=== PATIENT | male | born 1985 | race Caucasian/White ===

== ENCOUNTER 2018-09-10 16:55 | Inpatient (IN) ==
--- NOTE | 2018-09-10 19:24 | ED ---
HPI General Chief complaint: Extremity Problem,Nontraumatic Stated complaint: Leg Numbness Time Seen by Provider: 09/10/18 19:04 Source: patient Mode of arrival: EMS Limitations: physical limitation History of Present Illness HPI Narrative: 33-year-old male complains of weakness and numbness at the waist and lower extremity. Patient states that he has history of spinal stenosis. Patient states that he has intermittent numbness and weakness of the pelvic area and lower extremity since 2013. Patient has been seen by [facility] and neurologist in the past. Patient was advised nonsurgical treatment. Patient moved to [facility] recently. Patient goes to the [facility]. Patient states that he started having urinary incontinence for the past 2 weeks. Patient also complains of numbness and weakness of the pelvic area and lower extremity for the past 2 weeks. Patient states that the symptom is worse this afternoon. Patient states that he is feeling pressure around the pelvic area and lower extremity without feeling pain. Patient denies any recent injury. Patient denies any fever chills. Patient has history of PTSD, seizure. Patient states that he was seen at the [facility] and referred to outpatient MRI this afternoon. Patient had MRI done of the spine this afternoon without knowing the results. Patient was brought into the ED by EMS. MD Complaint: Reports other (Pelvic numbness and lower extremity numbness and weakness.) Onset (ago): week(s) Pain Consistency: intermittent Location: Reports lower extremity Severity scale (1-10): 9 Quality: Reports constant Radiation: Reports distal Relieving factors: nothing Exacerbating factors: nothing Associated symptoms: Reports denies other symptoms Context: Reports other (History of spinal stenosis) Related Data Home Medications Medication Instructions Recorded Confirmed buspirone 10 mg PO TID 09/10/18 09/10/18 diazepam 5 mg PO BID 09/10/18 09/10/18 gabapentin 900 mg PO TID 09/10/18 09/10/18 lorazepam 0.5 mg PO DAILY 09/10/18 09/10/18 meloxicam 15 mg PO DAILY 09/10/18 09/10/18 sertraline 150 mg PO DAILY 09/10/18 09/10/18 trazodone 150 mg PO DAILY 09/10/18 09/10/18 zolpidem [Ambien] 10 mg PO HS 09/10/18 09/10/18 Allergies Allergy/AdvReac Type Severity Reaction Status Date / Time No Known Allergies Allergy Verified 09/10/18 17:55 Review of Systems ROS: all other systems reviewed are negative PMFSH Medical History Medical History Degenerative disc disease (Acute) Facet degeneration of lumbar region (Acute) PTSD (post-traumatic stress disorder) (Acute) Seizure (Acute) Spinal stenosis (Acute) Social History Social History Substance History: No History of Abuse Second Hand Smoke Exposure: No Smoking Status: Never smoker How Often Do You Have a Drink Containing Alcohol: Never Recent Travel in [facility] within the Last 8 Weeks: No Recent Out of Country Travel within the Last 8 Weeks: No Immunization History Tetanus Immunization: Unsure Exam Narrative Exam Narrative: GENERAL: Well-nourished, well-developed patient. SKIN: Focused skin assessment warm/dry. HEAD: Normocephalic. EYES: No scleral icterus. No injection or drainage. NECK: Supple, trachea midline. No JVD or lymphadenopathy. CARDIOVASCULAR: Regular rate and rhythm without murmurs, gallops, or rubs. RESPIRATORY: Breath sounds equal bilaterally. No accessory muscle use. GASTROINTESTINAL: Abdomen soft, non-tender, nondistended. MUSCULOSKELETAL: No cyanosis, or edema. BACK: Nontender without obvious deformity. No CVA tenderness. Neurologic exam: Patient is awake and alert oriented x3. Neurovascular intact upper extremity. Patient unable to move bilateral lower extremity. Decreased light touch sensation bilateral lower extremity. Deep tendon reflex 1+ and equal. Negative Babinski. Good pulses bilaterally lower extremity. Course Initial Documented Vital Signs Pulse Rate 61 09/10/18 17:55 Respiratory Rate 18 09/10/18 17:55 Blood Pressure 115/69 09/10/18 17:55 Pulse Oximetry 98 09/10/18 17:55 Last Documented Vital Signs Temperature 97.8 F 09/12/18 15:16 Pulse Rate 67 09/12/18 15:16 Respiratory Rate 18 09/12/18 15:16 Blood Pressure 114/67 09/12/18 15:16 Pulse Oximetry 96 09/12/18 15:16 Medical Decision Making MDM Narrative Medical decision making narrative: 33-year-old male with history of spinal stenosis complains of numbness around pelvic area and numbness and weakness of bilateral lower extremity. Patient has intermittent symptoms for the past 4 years. Symptoms started 2 weeks ago and progressively worse since then. Medical Screen Exam Complete: Yes Emergency Medical Condition: Yes Differential Diagnosis Differential Diagnosis: Differential diagnosis including radiculopathy, neuropathy, spinal stenosis. Lab Data Lab results reviewed: Yes I reviewed the patient's lab results. Result diagrams: 09/12/18 06:05 09/12/18 06:05 Lab Results 09/10/18 09/10/18 09/10/18 Range/Units 19:36 19:36 19:36 WBC 6.3 (4.0-11.0) th/mm3 RBC 4.96 (4.50-5.90) mil/mm3 Hgb 15.8 (13.0-17.0) gm/dL Hct 44.7 (39.0-51.0) % MCV 90.1 (80.0-100.0) fL MCH 31.9 (27.0-34.0) pg MCHC 35.5 (32.0-36.0) % RDW 13.0 (11.6-17.2) % Plt Count 176 (150-450) th/mm3 MPV 8.3 (7.0-11.0) fL Neut % (Auto) 63.6 (16.0-70.0) % Lymph % (Auto) 28.6 (9.0-44.0) % Rooks % (Auto) 6.7 (0.0-8.0) % Eos % (Auto) 0.8 (0.0-4.0) % Baso % (Auto) 0.3 (0.0-2.0) % Neut # (Auto) 4.0 (1.8-7.7) th/mm3 Lymph # (Auto) 1.8 (1.0-4.8) th/mm3 Rooks # (Auto) 0.4 (0.0-0.9) th/mm3 Eos # (Auto) 0.0 (0.0-0.4) th/mm3 Baso # (Auto) 0.0 (0.0-0.2) th/mm3 WBC Differential . Differential Comment Auto diff final PT (9.8-11.6) sec INR Ratio Sodium 138 (136-145) meq/L Potassium 4.1 (3.5-5.1) meq/L Chloride 105 (98-107) meq/L Carbon Dioxide 30.7 (21.0-32.0) meq/L Anion Gap 2 L (5-15) meq/L BUN 14 (7-18) mg/dL Creatinine 1.09 (0.60-1.30) mg/dL Estimated GFR 78 L (>89) mL/min Random Glucose 77 (74-106) mg/dL Calcium 8.8 (8.5-10.1) mg/dL Total Bilirubin 0.5 (0.2-1.0) mg/dL AST 18 (15-37) U/L ALT 24 (12-78) U/L Alkaline Phosphatase 67 (45-117) U/L Total Protein 7.9 (6.4-8.2) g/dL Albumin 4.3 (3.4-5.0) g/dL Vitamin B12 496 (193-986) pg/mL TSH 1.040 1.060 (0.358-3.740) uIU/mL Urine Color (Yellw/Straw) Urine Clarity (Clear) Urine pH (5.0-8.5) Ur Specific Perry (1.002-1.035) Urine Protein (Neg-Trace) mg/dL Urine Glucose (UA) (Negative) mg/dL Urine Ketones (Negative) mg/dL Urine Occult Blood (Negative) Urine Nitrate (Negative) Urine Bilirubin (Negative) Urine Urobilinogen (Less than 2) mg/dL Ur Leukocyte Esterase (Negative) Urine RBC (0-3) /hpf Urine WBC (0-5) /hpf Urine Mucus (Occasional) /lpf Micro UA Comment Ur Microscopic Review Urine Culture Comments CSF Volume (1) mL CSF Supernat Color (1) (Clear) CSF Gross Blood (1) (0) CSF Volume (2) mL CSF Supernat Color (2) (Clear) CSF Gross Blood (2) (0) CSF Volume (3) mL CSF Supernat Color (3) (Clear) CSF Gross Blood (3) (0) CSF Volume (4) mL CSF Supernat Color (4) (Clear) CSF Gross Blood (4) (0) CSF WBC (4) (0-10) /mm3 CSF RBC (4) (None) /mm3 CSF Neutrophils % % CSF Lymphocytes % % CSF Glucose (40-80) mg/dL CSF Total Protein (15.0-45.0) mg/dL Urine Opiates Screen (Neg) Ur Barbiturates Screen (Neg) Ur Amphetamines Screen (Neg) U Benzodiazepines Scrn (Neg) Urine Cocaine Screen (Neg) U Cannabinoids Screen (Neg) 09/11/18 09/11/18 09/11/18 Range/Units 02:00 02:00 18:35 WBC (4.0-11.0) th/mm3 RBC (4.50-5.90) mil/mm3 Hgb (13.0-17.0) gm/dL Hct (39.0-51.0) % MCV (80.0-100.0) fL MCH (27.0-34.0) pg MCHC (32.0-36.0) % RDW (11.6-17.2) % Plt Count (150-450) th/mm3 MPV (7.0-11.0) fL Neut % (Auto) (16.0-70.0) % Lymph % (Auto) (9.0-44.0) % Rooks % (Auto) (0.0-8.0) % Eos % (Auto) (0.0-4.0) % Baso % (Auto) (0.0-2.0) % Neut # (Auto) (1.8-7.7) th/mm3 Lymph # (Auto) (1.0-4.8) th/mm3 Rooks # (Auto) (0.0-0.9) th/mm3 Eos # (Auto) (0.0-0.4) th/mm3 Baso # (Auto) (0.0-0.2) th/mm3 WBC Differential Differential Comment PT 10.0 (9.8-11.6) sec INR 1.0 Ratio Sodium (136-145) meq/L Potassium (3.5-5.1) meq/L Chloride (98-107) meq/L Carbon Dioxide (21.0-32.0) meq/L Anion Gap (5-15) meq/L BUN (7-18) mg/dL Creatinine (0.60-1.30) mg/dL Estimated GFR (>89) mL/min Random Glucose (74-106) mg/dL Calcium (8.5-10.1) mg/dL Total Bilirubin (0.2-1.0) mg/dL AST (15-37) U/L ALT (12-78) U/L Alkaline Phosphatase (45-117) U/L Total Protein (6.4-8.2) g/dL Albumin (3.4-5.0) g/dL Vitamin B12 (193-986) pg/mL TSH (0.358-3.740) uIU/mL Urine Color Yellow (Yellw/Straw) Urine Clarity Clear (Clear) Urine pH 6.0 (5.0-8.5) Ur Specific Perry 1.019 (1.002-1.035) Urine Protein Negative (Neg-Trace) mg/dL Urine Glucose (UA) Negative (Negative) mg/dL Urine Ketones Negative (Negative) mg/dL Urine Occult Blood Negative (Negative) Urine Nitrate Negative (Negative) Urine Bilirubin Negative (Negative) Urine Urobilinogen Less than 2 (Less than 2) mg/dL Ur Leukocyte Esterase Negative (Negative) Urine RBC 2 (0-3) /hpf Urine WBC 1 (0-5) /hpf Urine Mucus Few H (Occasional) /lpf Micro UA Comment Cath-culture not ind Ur Microscopic Review Not Reportable Urine Culture Comments Cath-cult not ind CSF Volume (1) mL CSF Supernat Color (1) (Clear) CSF Gross Blood (1) (0) CSF Volume (2) mL CSF Supernat Color (2) (Clear) CSF Gross Blood (2) (0) CSF Volume (3) mL CSF Supernat Color (3) (Clear) CSF Gross Blood (3) (0) CSF Volume (4) mL CSF Supernat Color (4) (Clear) CSF Gross Blood (4) (0) CSF WBC (4) (0-10) /mm3 CSF RBC (4) (None) /mm3 CSF Neutrophils % % CSF Lymphocytes % % CSF Glucose (40-80) mg/dL CSF Total Protein (15.0-45.0) mg/dL Urine Opiates Screen Neg (Neg) Ur Barbiturates Screen Neg (Neg) Ur Amphetamines Screen Neg (Neg) U Benzodiazepines Scrn Neg (Neg) Urine Cocaine Screen Neg (Neg) U Cannabinoids Screen Neg (Neg) 09/12/18 09/12/18 09/12/18 Range/Units 06:05 06:05 08:55 WBC 6.0 (4.0-11.0) th/mm3 RBC 4.79 (4.50-5.90) mil/mm3 Hgb 15.2 (13.0-17.0) gm/dL Hct 44.7 (39.0-51.0) % MCV 93.3 (80.0-100.0) fL MCH 31.6 (27.0-34.0) pg MCHC 33.9 (32.0-36.0) % RDW 13.4 (11.6-17.2) % Plt Count 173 (150-450) th/mm3 MPV 8.5 (7.0-11.0) fL Neut % (Auto) 50.4 (16.0-70.0) % Lymph % (Auto) 38.1 (9.0-44.0) % Rooks % (Auto) 9.5 H (0.0-8.0) % Eos % (Auto) 1.5 (0.0-4.0) % Baso % (Auto) 0.5 (0.0-2.0) % Neut # (Auto) 3.0 (1.8-7.7) th/mm3 Lymph # (Auto) 2.3 (1.0-4.8) th/mm3 Rooks # (Auto) 0.6 (0.0-0.9) th/mm3 Eos # (Auto) 0.1 (0.0-0.4) th/mm3 Baso # (Auto) 0.0 (0.0-0.2) th/mm3 WBC Differential . Differential Comment Auto diff final PT (9.8-11.6) sec INR Ratio Sodium 141 (136-145) meq/L Potassium 4.0 (3.5-5.1) meq/L Chloride 105 (98-107) meq/L Carbon Dioxide 29.3 (21.0-32.0) meq/L Anion Gap 7 (5-15) meq/L BUN 15 (7-18) mg/dL Creatinine 1.26 (0.60-1.30) mg/dL Estimated GFR 66 L (>89) mL/min Random Glucose 99 (74-106) mg/dL Calcium 9.1 (8.5-10.1) mg/dL Total Bilirubin 0.4 (0.2-1.0) mg/dL AST 22 (15-37) U/L ALT 20 (12-78) U/L Alkaline Phosphatase 66 (45-117) U/L Total Protein 7.2 D (6.4-8.2) g/dL Albumin 3.9 (3.4-5.0) g/dL Vitamin B12 (193-986) pg/mL TSH (0.358-3.740) uIU/mL Urine Color (Yellw/Straw) Urine Clarity (Clear) Urine pH (5.0-8.5) Ur Specific Perry (1.002-1.035) Urine Protein (Neg-Trace) mg/dL Urine Glucose (UA) (Negative) mg/dL Urine Ketones (Negative) mg/dL Urine Occult Blood (Negative) Urine Nitrate (Negative) Urine Bilirubin (Negative) Urine Urobilinogen (Less than 2) mg/dL Ur Leukocyte Esterase (Negative) Urine RBC (0-3) /hpf Urine WBC (0-5) /hpf Urine Mucus (Occasional) /lpf Micro UA Comment Ur Microscopic Review Urine Culture Comments CSF Volume (1) 1.8 mL CSF Supernat Color (1) Clear (Clear) CSF Gross Blood (1) 0 (0) CSF Volume (2) 2.0 mL CSF Supernat Color (2) Clear (Clear) CSF Gross Blood (2) 0 (0) CSF Volume (3) 2.0 mL CSF Supernat Color (3) Clear (Clear) CSF Gross Blood (3) 0 (0) CSF Volume (4) 3.8 mL CSF Supernat Color (4) Clear (Clear) CSF Gross Blood (4) 0 (0) CSF WBC (4) 2 (0-10) /mm3 CSF RBC (4) 0 (None) /mm3 CSF Neutrophils % 0 % CSF Lymphocytes % 100 % CSF Glucose (40-80) mg/dL CSF Total Protein (15.0-45.0) mg/dL Urine Opiates Screen (Neg) Ur Barbiturates Screen (Neg) Ur Amphetamines Screen (Neg) U Benzodiazepines Scrn (Neg) Urine Cocaine Screen (Neg) U Cannabinoids Screen (Neg) 09/12/18 Range/Units 08:55 WBC (4.0-11.0) th/mm3 RBC (4.50-5.90) mil/mm3 Hgb (13.0-17.0) gm/dL Hct (39.0-51.0) % MCV (80.0-100.0) fL MCH (27.0-34.0) pg MCHC (32.0-36.0) % RDW (11.6-17.2) % Plt Count (150-450) th/mm3 MPV (7.0-11.0) fL Neut % (Auto) (16.0-70.0) % Lymph % (Auto) (9.0-44.0) % Rooks % (Auto) (0.0-8.0) % Eos % (Auto) (0.0-4.0) % Baso % (Auto) (0.0-2.0) % Neut # (Auto) (1.8-7.7) th/mm3 Lymph # (Auto) (1.0-4.8) th/mm3 Rooks # (Auto) (0.0-0.9) th/mm3 Eos # (Auto) (0.0-0.4) th/mm3 Baso # (Auto) (0.0-0.2) th/mm3 WBC Differential Differential Comment PT (9.8-11.6) sec INR Ratio Sodium (136-145) meq/L Potassium (3.5-5.1) meq/L Chloride (98-107) meq/L Carbon Dioxide (21.0-32.0) meq/L Anion Gap (5-15) meq/L BUN (7-18) mg/dL Creatinine (0.60-1.30) mg/dL Estimated GFR (>89) mL/min Random Glucose (74-106) mg/dL Calcium (8.5-10.1) mg/dL Total Bilirubin (0.2-1.0) mg/dL AST (15-37) U/L ALT (12-78) U/L Alkaline Phosphatase (45-117) U/L Total Protein (6.4-8.2) g/dL Albumin (3.4-5.0) g/dL Vitamin B12 (193-986) pg/mL TSH (0.358-3.740) uIU/mL Urine Color (Yellw/Straw) Urine Clarity (Clear) Urine pH (5.0-8.5) Ur Specific Perry (1.002-1.035) Urine Protein (Neg-Trace) mg/dL Urine Glucose (UA) (Negative) mg/dL Urine Ketones (Negative) mg/dL Urine Occult Blood (Negative) Urine Nitrate (Negative) Urine Bilirubin (Negative) Urine Urobilinogen (Less than 2) mg/dL Ur Leukocyte Esterase (Negative) Urine RBC (0-3) /hpf Urine WBC (0-5) /hpf Urine Mucus (Occasional) /lpf Micro UA Comment Ur Microscopic Review Urine Culture Comments CSF Volume (1) mL CSF Supernat Color (1) (Clear) CSF Gross Blood (1) (0) CSF Volume (2) mL CSF Supernat Color (2) (Clear) CSF Gross Blood (2) (0) CSF Volume (3) mL CSF Supernat Color (3) (Clear) CSF Gross Blood (3) (0) CSF Volume (4) mL CSF Supernat Color (4) (Clear) CSF Gross Blood (4) (0) CSF WBC (4) (0-10) /mm3 CSF RBC (4) (None) /mm3 CSF Neutrophils % % CSF Lymphocytes % % CSF Glucose 63 (40-80) mg/dL CSF Total Protein 50.4 H (15.0-45.0) mg/dL Urine Opiates Screen (Neg) Ur Barbiturates Screen (Neg) Ur Amphetamines Screen (Neg) U Benzodiazepines Scrn (Neg) Urine Cocaine Screen (Neg) U Cannabinoids Screen (Neg) Imaging Data Attestation: I personally reviewed and interpreted this imaging study as follows : Radiologist's impression: Cervical Spine MRI 09/10/18 19:15 CONCLUSION: 1. Mild degenerative disc disease at C3-4 and C5-6 without significant central canal or neural foraminal stenosis. 2. Normal cervical cord signal. Lumbar Spine MRI 09/10/18 19:15 CONCLUSION: 1. Mild ligamentum flavum hypertrophy at L4-S1 and facet arthrosis at L5-S1. 2. No significant disc disease, central canal stenosis or neural foraminal compromise. 3. Normal distal cord signal. Thoracic Spine MRI 09/10/18 19:15 CONCLUSION: 1. Negative MR Thoracic Spine non contrast. Head MRI 09/11/18 00:00 CONCLUSION: 1. Negative MR Brain non contrast. Lumbar Puncture Fluoroscopy 09/12/18 00:00 CONCLUSION: 1. Uncomplicated fluoroscopically guided lumbar puncture. Discharge Plan Discharge Disposition Patient Disposition: 30 Still Patient Discharge Details Diagnosis: Bilateral leg weakness Physicians Team ED Provider: Rodolfo Krueger Primary Care Provider: [facility],Physician 's Attending Provider: Tucker Price Other Providers: Rj Interiano Discharge Interventions Interventions: ED Discharge Assessment Last Done: 09/11/18 03:50 Status ED Status: Left Department Discharge Information Discharge Date/Time: 09/11/18 03:51
[2018-09-10 19:52] LABS: Baso % (Auto) 0.3 % (0.0-2.0); Eos % (Auto) 0.8 % (0.0-4.0); Hematocrit 44.7 % (39.0-51.0); Hemoglobin 15.8 gm/dL (13.0-17.0); Lymph # (Auto) 1.8 th/mm3 (1.0-4.8); Lymph % (Auto) 28.6 % (9.0-44.0); Mean Corpuscular HGB Conc 35.5 % (32.0-36.0); Mean Corpuscular Hemoglobin 31.9 pg (27.0-34.0); Mean Corpuscular Volume 90.1 fL (80.0-100.0); Mean Platelet Volume 8.3 fL (7.0-11.0); Mono # (Auto) 0.4 th/mm3 (0.0-0.9); Mono % (Auto) 6.7 % (0.0-8.0); Neut % (Auto) 63.6 % (16.0-70.0); Platelet Count 176 th/mm3 (150-450); Red Blood Count 4.96 mil/mm3 (4.50-5.90); White Blood Count 6.3 th/mm3 (4.0-11.0)
--- NOTE | 2018-09-10 20:13 | MR ---
EXAM DATE: 09/10/2018 8:08 PM EST AGE/SEX: 33 years / Male INDICATIONS: Myelopathy. Bilateral leg numbness and weakness. CLINICAL DATA: This is the patient's initial encounter. Patient reports that signs and symptoms have been present for 2 weeks and indicates a pain score of 8/10. MEDICAL/SURGICAL HISTORY: Renal calculi. Appendectomy. Shoulder sx. COMPARISON: No prior exams available for comparison. TECHNIQUE: Multiplanar, multisequence MRI of the lumbar spine was performed without contrast. Patie nt was scanned in a sitting position; neutral, flexion, and extension scans were performed in the sa gittal plane. FINDINGS: Vertebra: The most caudal-appearing lumbar vertebra is numbered as L5. Vertebral Body heights are in tact. Sagital alignment is maintained. Homogeneous signal. Discs: Maintained. Conus: Normal level and configuration. Paraspinal Soft Tissues: No significantfocal renal abnormalities in the visualized kidneys. Visualize d aorta is non-aneurysmal. No Retroperitoneal adenopathy. T12-L1: The thecal sac has a normal diameter. No evidence of disc bulge or protrusion. The neural foramina are patent bilaterally. L1-L2: The thecal sac has a normal diameter. No evidence of disc bulge or protrusion. The neural foramina are patent bilaterally. L2-L3: The thecal sac has a normal diameter. No evidence of disc bulge or protrusion. The neural foramina are patent bilaterally. L3-L4: The thecal sac has a normal diameter. No evidence of disc bulge or protrusion. The neural foramina are patent bilaterally. L4-L5: Mild ligament of flavum hypertrophy. No significant disc protrusion or bulge. Neural foramin a and central canal are patent. L5-S1: Mild ligamentum flavum hypertrophy and bilateral facet arthropathy. No significant disc bulg e or protrusion. Neural foramina and central canal are patent. CONCLUSION: 1. Mild ligamentum flavum hypertrophy at L4-S1 and facet arthrosis at L5-S1. 2. No significant disc disease, central canal stenosis or neural foraminal compromise. 3. Normal distal cord signal. Electronically signed by: Mamadou Webb MD 09/10/2018 8:12 PM EST
--- NOTE | 2018-09-10 20:14 | MR ---
EXAM DATE: 09/10/2018 8:11 PM EST AGE/SEX: 33 years / Male INDICATIONS: Myelopathy. Bilateral leg numbness and weakness. CLINICAL DATA: This is the patient's initial encounter. Patient reports that signs and symptoms have been present for 2 weeks and indicates a pain score of 8/10. MEDICAL/SURGICAL HISTORY: Renal calculi. Appendectomy. Shoulder sx. COMPARISON: No prior exams available for comparison. TECHNIQUE: Multiplanar, multisequence MRI of the thoracic spine was performed. FINDINGS: VERTEBRAE: Normal vertebral body height. Homogeneous marrow signal. ALIGNMENT: Normal. CORD: Normal position and configuration. T1-T2: Normal. T2-T3: The thecal sac has a normal diameter. No evidence of disc bulge or protrusion. T3-T4: The thecal sac has a normal diameter. No evidence of disc bulge or protrusion. T4-T5: The thecal sac has a normal diameter. No evidence of disc bulge or protrusion. T5-T6: The thecal sac has a normal diameter. No evidence of disc bulge or protrusion. T6-T7: The thecal sac has a normal diameter. No evidence of disc bulge or protrusion. T7-T8: The thecal sac has a normal diameter. No evidence of disc bulge or protrusion. T8-T9: The thecal sac has a normal diameter. No evidence of disc bulge or protrusion. T9-T10: The thecal sac has a normal diameter. No evidence of disc bulge or protrusion. T10-T11: The thecal sac has a normal diameter. No evidence of disc bulge or protrusion. T11-T12: The thecal sac has a normal diameter. No evidence of disc bulge or protrusion. T12-L1: The thecal sac has a normal diameter. No evidence of disc bulge or protrusion. CONCLUSION: 1. Negative MR Thoracic Spine non contrast. Electronically signed by: Mamadou Webb MD 09/10/2018 8:13 PM EST
[2018-09-10 20:19] LABS: Alanine Aminotransferase 24 U/L (12-78); Albumin 4.3 g/dL (3.4-5.0); Anion Gap 2 meq/L (5-15); Aspartate Aminotransferase 18 U/L (15-37); Blood Urea Nitrogen 14 mg/dL (7-18); Calcium 8.8 mg/dL (8.5-10.1); Carbon Dioxide 30.7 meq/L (21.0-32.0); Chloride 105 meq/L (98-107); Glomerular Filtration Rate 78 mL/min (>89); Glucose,Random 77 mg/dL (74-106); Potassium 4.1 meq/L (3.5-5.1); Sodium 138 meq/L (136-145)
[2018-09-10 20:29] LABS: Alkaline Phosphatase 67 U/L (45-117); Total Protein 7.9 g/dL (6.4-8.2)
--- NOTE | 2018-09-10 20:34 | MR ---
EXAM DATE: 09/10/2018 8:25 PM EST AGE/SEX: 33 years / Male INDICATIONS: Myelopathy. Bilateral leg numbness and weakness. CLINICAL DATA: This is the patient's initial encounter. Patient reports that signs and symptoms have been present for 2 weeks and indicates a pain score of 8/10. MEDICAL/SURGICAL HISTORY: Renal calculi. Appendectomy. Shoulder sx. COMPARISON: No prior exams available for comparison. TECHNIQUE: Multiplanar, multisequence MRI examination of the cervical spine was performed without co ntrast. FINDINGS: VERTEBRAE: Normal vertebral body height. Homogeneous marrow signal. ALIGNMENT: Normal. CORD: Normal configuration and signal. POST FOSSA: The cerebellar tonsils are normal in position. C2-C3: The thecal sac has a normal configuration. There is no evidence of disc herniation or spinal canal stenosis. The neural foramina are patent bilaterally. C3-C4: Minimal diffuse disc bulge. Minimal effacement anterior thecal sac. No neural foraminal stenos is. C4-C5: The thecal sac has a normal configuration. There is no evidence of disc herniation or spinal canal stenosis. The neural foramina are patent bilaterally. C5-C6: Mild broad-based posterior disc protrusion with mild effacement anterior thecal sac. Neural fo ramina are patent. C6-C7: The thecal sac has a normal configuration. There is no evidence of disc herniation or spinal canal stenosis. The neural foramina are patent bilaterally. C7-T1: No epidural impressions seen. CONCLUSION: 1. Mild degenerative disc disease at C3-4 and C5-6 without significant central canal or neural jamel inal stenosis. 2. Normal cervical cord signal. Electronically signed by: Mamadou Webb MD 09/10/2018 8:33 PM EST
[2018-09-11] MEDS ORDERED: Bisacodyl 10 MG Supp RECTAL PRN (00:21)
--- NOTE | 2018-09-11 01:47 | P.HP ---
History of Present Illness Service: [facility] Primary Care Physician: [facility] History of Present Illness: 33-year-old male with a past medical history significant for PTSD, degenerative disc disease, previous diagnosis of C5 spinal stenosis and history of kidney stones presents to the emergency department for evaluation of bilateral lower extremity weakness. The patient reports he has had intermittent episodes of his "legs not working" since 2013. He states that for the past 2 weeks his symptoms have returned. He has had intermittent bladder incontinence times 1 month. The patient was having an MRI done at the [place] earlier yesterday when he noted increasing bilateral lower extremity weak. He reports he was able to make it to his truck in the parking lot however once he sat down in the truck he was then unable to move his legs. He reports mild numbness/tingling but states he is still able to feel sensation throughout his lower extremities. Reflexes are normal. He denies any recent fever or chills. No chest pain or shortness of breath. No abdominal pain. No nausea/vomiting/diarrhea. Review of Systems All other systems reviewed negative except as stated in HPI PMFSH - History History Provided By: Patient - Medical History Medical History: Medical History (Last Reviewed 09/11/18 @ 01:37 by Katie Dozier MD) Degenerative disc disease Facet degeneration of lumbar region PTSD (post-traumatic stress disorder) Seizure Spinal stenosis - Surgical History Surgical History: Surgical History (Last Updated 09/11/18 @ 01:38 by Katie Dozier MD) History of appendectomy History of shoulder surgery - Family History Family History: Family History (Last Updated 09/11/18 @ 01:38 by Katie Dozier MD) Other Family history normal - Social History I have reviewed the patient's Social History: Yes - Tobacco History Smoking Status: Refused to answer - Alcohol History How Often Do You Have a Drink Containing Alcohol: 2 to 4 times a month - Substance Use History Substance History: No History of Abuse - Travel History Recent Travel in the [place] Within the Last 8 Weeks: No Recent Travel Out of the Country Within the Last 8 Weeks: No - Immunization History Tetanus Immunization: Unsure Medications and Allergies Active Medications: Active Medications Acetaminophen (Tylenol) 650 mg PO Q4H PRN PRN Reason: Temp > 100.4 Bisacodyl (Dulcolax Supp) 10 mg RECTAL DAILY PRN PRN Reason: SEVERE CONSITIPATION Ondansetron HCl (Zofran Inj) 4 mg IV.PUSH Q6H PRN PRN Reason: NAUSEA OR VOMITING Sennosides (Senokot) 17.2 mg PO Q12H PRN PRN Reason: Moderate Constipation Allergies Allergy/AdvReac Type Severity Reaction Status Date / Time No Known Allergies Allergy Verified 09/10/18 17:55 Home Medications Medication Instructions Recorded Confirmed Type buspirone 10 mg PO TID 09/10/18 09/10/18 History diazepam 5 mg PO BID 09/10/18 09/10/18 History gabapentin 900 mg PO TID 09/10/18 09/10/18 History lorazepam 0.5 mg PO DAILY 09/10/18 09/10/18 History meloxicam 15 mg PO DAILY 09/10/18 09/10/18 History sertraline 150 mg PO DAILY 09/10/18 09/10/18 History trazodone 150 mg PO DAILY 09/10/18 09/10/18 History zolpidem [Ambien] 10 mg PO HS 09/10/18 09/10/18 History Exam Vital signs: Vital Signs 09/10/18 17:55 09/10/18 19:15 09/10/18 22:00 Pulse Rate 61 72 Respiratory Rate 18 18 Blood Pressure 115/69 129/77 Pulse Oximetry 98 100 100 Intake & Output 09/10/18 09/10/18 09/11/18 06:59 18:59 06:59 Weight 75.75 kg Narrative: Gen.: No acute distress Head: Normocephalic. Atraumatic. EENT: Mydriasis bilaterally. Nose without drainage. Airway intact. Throat without injection. Cardiovascular: Regular rate and rhythm. No murmurs, rubs or gallops. Respiratory: Lungs clear to auscultation bilaterally. No wheezes or rhonchi. Abdomen: Soft, nontender, nondistended. No peritoneal signs. Musculoskeletal: No gross deformities. No edema. Skin: No obvious rashes or erythema. Neuro: Patient reports a decreased sensation in his bilateral lower extremities however states he still has feeling. Strength in the bilateral lower extremities 0/5; patient unable to resist gravity. Results - Labs CBC & Chem 7: 09/10/18 19:36 09/10/18 19:36 Labs: Laboratory Results - last 24 hr 09/10/18 09/10/18 19:36 19:36 WBC 6.3 RBC 4.96 Hgb 15.8 Hct 44.7 MCV 90.1 MCH 31.9 MCHC 35.5 RDW 13.0 Plt Count 176 MPV 8.3 Neut % (Auto) 63.6 Lymph % (Auto) 28.6 [place] % (Auto) 6.7 Eos % (Auto) 0.8 Baso % (Auto) 0.3 Neut # (Auto) 4.0 Lymph # (Auto) 1.8 [place] # (Auto) 0.4 Eos # (Auto) 0.0 Baso # (Auto) 0.0 WBC Differential . Differential Comment Auto diff final Sodium 138 Potassium 4.1 Chloride 105 Carbon Dioxide 30.7 Anion Gap 2 L BUN 14 Creatinine 1.09 Estimated GFR 78 L Random Glucose 77 Calcium 8.8 Total Bilirubin 0.5 AST 18 ALT 24 Alkaline Phosphatase 67 Total Protein 7.9 Albumin 4.3 TSH 1.040 - Imaging Impressions Cervical Spine MRI 09/10/18 19:15 CONCLUSION: 1. Mild degenerative disc disease at C3-4 and C5-6 without significant central canal or neural foraminal stenosis. 2. Normal cervical cord signal. Lumbar Spine MRI 09/10/18 19:15 CONCLUSION: 1. Mild ligamentum flavum hypertrophy at L4-S1 and facet arthrosis at L5-S1. 2. No significant disc disease, central canal stenosis or neural foraminal compromise. 3. Normal distal cord signal. Thoracic Spine MRI 09/10/18 19:15 CONCLUSION: 1. Negative MR Thoracic Spine non contrast. Caprini VTE Risk Assessment Caprini VTE Risk Assessment: No/Low Risk (score <= 1) Caprini Risk Assessment Model: Point Value = 1 Point Value = 2 Point Value = 3 Point Value = 5 Age 41-60 Minor surgery BMI > 25 kg/m2 Swollen legs Varicose veins or History of unexplained or recurrent spontaneous Oral contraceptives or hormone replacement Sepsis (< 1 month) Serious lung disease, including pneumonia (< 1 month) Abnormal pulmonary function Acute myocardial infarction Congestive heart failure (< 1 month) History of inflammatory bowel disease Medical patient at bed rest Age 61-74 Arthroscopic surgery Major open surgery (> 45 min) Laparoscopic surgery (> 45 min) Malignancy Confined to bed (> 72 hours) Immobilizing plaster cast Central venous access Age >= 75 History of VTE Family history of VTE Factor V Leiden Prothrombin [id number] Lupus anticoagulant Anticardiolipin antibodies Elevated serum homocysteine Heparin-induced thrombocytopenia Other congenital or acquired thrombophilia Stroke (< 1 month) Elective arthroplasty Hip, pelvis, or leg fracture Acute spinal cord injury (< 1 month) Prophylaxis Regimen: Total Risk Factor Score Risk Level Prophylaxis Regimen 0-1 Low Early ambulation 2 Moderate Order ONE of the following: *Sequential Compression Device (SCD) *Heparin 5000 units SQ BID 3-4 Higher Order ONE of the following medications: *Heparin 5000 units SQ TID *Enoxaparin/Lovenox 40 mg SQ daily (WT < 150 kg, CrCl > 30 mL/min) *Enoxaparin/Lovenox 30 mg SQ daily (WT < 150 kg, CrCl > 10-29 mL/min) *Enoxaparin/Lovenox 30 mg SQ BID (WT < 150 kg, CrCl > 30 mL/min) AND/OR *Sequential Compression Device (SCD) 5 or more Highest Order ONE of the following medications: *Heparin 5000 units SQ TID (Preferred with Epidurals) *Enoxaparin/Lovenox 40 mg SQ daily (WT < 150 kg, CrCl > 30 mL/min) *Enoxaparin/Lovenox 30 mg SQ daily (WT < 150 kg, CrCl > 10-29 mL/min) *Enoxaparin/Lovenox 30 mg SQ BID (WT < 150 kg, CrCl > 30 mL/min) AND *Sequential Compression Device (SCD) Assessment and Plan - Plan Assessment/plan: 1. Bilateral lower extremity weakness Patient reports history of C5 spinal stenosis however cervical, thoracic and lumbar spine MRIs negative for stenosis Neurology consulted, appreciate assistance MRI brain pending Physical therapy 2. Mydriasis Likely secondary to benzodiazepine use which patient states he is prescribed for his PTSD Urine drug screen pending 3. Urinary incontinence Neurologic evaluation as above UA pending 4. PTSD Holding home medications as polypharmacy may be contributing to patient's symptoms FEN Regular diet Electrolytes: Monitor and replete as needed
[2018-09-11 02:31] LABS: Amphetamine Screen,Urine Neg (Neg); Barbiturate Screen,Urine Neg (Neg); Cannabinoid Screen,Urine Neg (Neg); Cocaine Screen,Urine Neg (Neg)
[2018-09-11 02:39] LABS: Bilirubin,Urine Negative (Negative); Clarity,Urine Clear (Clear); Color,Urine Yellow (Yellw/Straw); Glucose,Urine (UA) Negative (Negative); Leukocyte Esterase,Urine Negative (Negative); Mucus,Urine Few /lpf (Occasional); Nitrite,Urine Negative (Negative); Specific Gravity,Urine 1.019 (1.002-1.035)
[2018-09-11 02:42] LABS: Opiate Screen,Urine Neg (Neg)
--- NOTE | 2018-09-11 08:21 | MR ---
EXAM DATE: 09/11/2018 8:14 AM EST AGE/SEX: 33 years / Male INDICATIONS: . Bilateral lower extremity numbness. CLINICAL DATA: This is the patient's initial encounter. Patient reports that signs and symptoms have been present for 2 days and indicates a pain score of 0/10. MEDICAL/SURGICAL HISTORY: None. Appendectomy. Shoulder surgery. COMPARISON: No prior exams available for comparison. TECHNIQUE: Multiplanar, multisequence examination of the brain was performed without contrast. FINDINGS: Cerebrum: The ventricles are normal for age. No evidence of midline shift, mass lesion, hemorrhage or acute infarction. No extraaxial fluid collections are seen. The pituitary gland and suprasellar cistern are normal in configuration. White Matter: No significant signal abnormalities are seen in the white matter. Posterior Fossa: The cerebellum and brainstem are intact. The 4th ventricle is midline. The cerebel lopontine angle is unremarkable. The cerebellar tonsils are normal in position. Diffusion Imaging: No focal areas of restricted diffusion are seen. No evidence of acute infarction . Extracranial: The visualized portions of the orbits and paranasal sinuses are unremarkable. CONCLUSION: 1. Negative MR Brain non contrast. Electronically signed by: Tucker Fleming MD 09/11/2018 8:20 AM EST
--- NOTE | 2018-09-11 13:32 | P.PNIM ---
Subjective Interval history: No evidence of multiple sclerosis, CVA, or stenosis on MRI including brain, cervical spine, thoracic spine, and lumbar spine. Patient still has no significant functionality below his waist and has urinary incontinence. Physical Exam Vital signs: Vital Signs 09/10/18 17:55 09/10/18 19:15 09/10/18 22:00 Temperature Pulse Rate 61 72 Respiratory Rate 18 18 Blood Pressure 115/69 129/77 Pulse Oximetry 98 100 100 09/11/18 01:35 09/11/18 02:00 09/11/18 08:00 Temperature 97.7 F Pulse Rate 56 L 60 70 Respiratory Rate 16 15 16 Blood Pressure 122/76 119/81 Pulse Oximetry 98 98 98 09/11/18 12:00 Temperature 98.1 F Pulse Rate 62 Respiratory Rate 16 Blood Pressure 103/63 Pulse Oximetry 98 Intake & Output 09/10/18 09/11/18 09/11/18 18:59 06:59 18:59 Weight 75.75 kg Other: # Voids 0 Narrative: GENERAL: NAD, A&Ox3 HEAD: Normocephalic. NECK: Supple, trachea midline. No lymphadenopathy. EYES: No scleral icterus. No injection or drainage. CARDIOVASCULAR: Regular rate and rhythm without murmurs, gallops, or rubs. RESPIRATORY: Breath sounds equal bilaterally. No accessory muscle use. GASTROINTESTINAL: Abdomen soft, non-tender, nondistended. MUSCULOSKELETAL: No cyanosis, or edema. SKIN: Warm and dry. NEURO: Bilateral lower extremity weakness, 0 out of 5 strength. Decreased sensory to lower extremities.. Results - Labs CBC & Chem 7: 09/10/18 19:36 09/10/18 19:36 Laboratory Results - last 24 hr 09/10/18 09/10/18 09/11/18 19:36 19:36 02:00 WBC 6.3 RBC 4.96 Hgb 15.8 Hct 44.7 MCV 90.1 MCH 31.9 MCHC 35.5 RDW 13.0 Plt Count 176 MPV 8.3 Neut % (Auto) 63.6 Lymph % (Auto) 28.6 [place] % (Auto) 6.7 Eos % (Auto) 0.8 Baso % (Auto) 0.3 Neut # (Auto) 4.0 Lymph # (Auto) 1.8 [place] # (Auto) 0.4 Eos # (Auto) 0.0 Baso # (Auto) 0.0 WBC Differential . Differential Comment Auto diff final Sodium 138 Potassium 4.1 Chloride 105 Carbon Dioxide 30.7 Anion Gap 2 L BUN 14 Creatinine 1.09 Estimated GFR 78 L Random Glucose 77 Calcium 8.8 Total Bilirubin 0.5 AST 18 ALT 24 Alkaline Phosphatase 67 Total Protein 7.9 Albumin 4.3 TSH 1.040 Urine Color Urine Clarity Urine pH Ur Specific [place] Urine Protein Urine Glucose (UA) Urine Ketones Urine Occult Blood Urine Nitrate Urine Bilirubin Urine Urobilinogen Ur Leukocyte Esterase Urine RBC Urine WBC Urine Mucus Micro UA Comment Ur Microscopic Review Urine Culture Comments Urine Opiates Screen Neg Ur Barbiturates Screen Neg Ur Amphetamines Screen Neg U Benzodiazepines Scrn Neg Urine Cocaine Screen Neg U Cannabinoids Screen Neg 09/11/18 02:00 WBC RBC Hgb Hct MCV MCH MCHC RDW Plt Count MPV Neut % (Auto) Lymph % (Auto) [place] % (Auto) Eos % (Auto) Baso % (Auto) Neut # (Auto) Lymph # (Auto) [place] # (Auto) Eos # (Auto) Baso # (Auto) WBC Differential Differential Comment Sodium Potassium Chloride Carbon Dioxide Anion Gap BUN Creatinine Estimated GFR Random Glucose Calcium Total Bilirubin AST ALT Alkaline Phosphatase Total Protein Albumin TSH Urine Color Yellow Urine Clarity Clear Urine pH 6.0 Ur Specific [place] 1.019 Urine Protein Negative Urine Glucose (UA) Negative Urine Ketones Negative Urine Occult Blood Negative Urine Nitrate Negative Urine Bilirubin Negative Urine Urobilinogen Less than 2 Ur Leukocyte Esterase Negative Urine RBC 2 Urine WBC 1 Urine Mucus Few H Micro UA Comment Cath-culture not ind Ur Microscopic Review Not Reportable Urine Culture Comments Cath-cult not ind Urine Opiates Screen Ur Barbiturates Screen Ur Amphetamines Screen U Benzodiazepines Scrn Urine Cocaine Screen U Cannabinoids Screen - Imaging Impressions Cervical Spine MRI 09/10/18 19:15 CONCLUSION: 1. Mild degenerative disc disease at C3-4 and C5-6 without significant central canal or neural foraminal stenosis. 2. Normal cervical cord signal. Lumbar Spine MRI 09/10/18 19:15 CONCLUSION: 1. Mild ligamentum flavum hypertrophy at L4-S1 and facet arthrosis at L5-S1. 2. No significant disc disease, central canal stenosis or neural foraminal compromise. 3. Normal distal cord signal. Thoracic Spine MRI 09/10/18 19:15 CONCLUSION: 1. Negative MR Thoracic Spine non contrast. Head MRI 09/11/18 00:00 CONCLUSION: 1. Negative MR Brain non contrast. Assessment and Plan - Plan 33-year-old male admitted secondary to acute onset of lower extremity paraplegia Acute onset lower extremity paraplegia bilateral lower extremity weakness Urinary incontinence History of C5 spinal stenosis (mild) No evidence of severe stenosis on imaging No evidence of CVA or MS on imaging of brain and spine Neurology following Continue physical therapy PTSD chronic benzodiazepine use Resumed at lower doses and baseline to prevent withdrawal DVT prophylaxis SCDs contraindicated due to sensory deficit Until bleed is ruled out we will avoid anticoagulation
--- NOTE | 2018-09-11 15:43 | MB ---
cc: Rj Interiano MD, PhD DATE: 09/11/2018 REASON FOR CONSULTATION: Lower extremity weakness. HISTORY OF PRESENT ILLNESS: Mr. Greene is a 33-year-old man who has a history of spine injury in 2008 after he fell down a flight of stairs with persistent back pain. In 2013, he had an episode of transient weakness of both legs lasting a day or so, then it resolved. Since then, he has noted that if he sits on his legs he will get weak and numb, but then it resolves. For the past week, he has had progressive weakness and numbness in both lower extremities, which has been worse the past day or two, progressing to involve both lower extremities with severe weakness. He also has bladder incontinence. He denies double vision or slurred speech. PAST MEDICAL HISTORY: History of C5 stenosis, kidney stones, PTSD, seizures, degenerative disk disease, appendectomy, shoulder surgery. MEDICATIONS: Currently: 1. Tylenol. 2. Dulcolax. 3. BuSpar. 4. Ativan. 5. Zofran. 6. Senokot. 7. Zoloft. 8. Trazodone. NEUROLOGICAL EXAMINATION: VITAL SIGNS: His blood pressure is 119/81, pulse is 70, respirations 16, temperature is 97.7 degrees. NEUROLOGIC: Higher cortical functions is normal. Cranial nerves are intact. Motor exam: He has normal strength in all major groups in the upper extremities. He is weak in the lower extremities, about 1/5 for the iliopsoas, quadriceps, hamstrings, hip, anterior and gastrocnemius. Tone is normal. Sensory exam is diminished in both legs. There is no sensory loss or sensory level about the thoracic area. Reflexes 1+ and symmetric. There is no Babinski sign present. Cerebellar testing is normal. IMAGING STUDIES: He had an MRI of the brain done, which is within normal limits without contrast. MRI cervical spine: Mild degenerative disk disease C3-4, C5-6, no significant stenosis. The cord appears normal. MRI of the thoracic spine is normal. MRI of lumbar spine: Mild degenerative changes at L4-L5 and L5-S1. No significant stenosis. The distal cord is normal. LABORATORY DATA: White count 6300, hemoglobin 15.8, hematocrit 44%, platelet count 176,000. Sodium is 138, potassium 4.1, chloride 105, CO2 is 30, BUN is 14, creatinine 1.09, GFR IS 78, glucose 77, AST 18, ALT is 24. TSH 1.040. Toxicology screen negative. IMPRESSION: Lower extremity weakness. MRI does not show any evidence of multiple sclerosis. No sign of cord compression. I would recommend further evaluation with lumbar puncture to rule out the chance of transverse myelitis. Also, check labs including a B12 level and thyroid level. Rj Interiano MD, PhD DEANA/alec , 03:12 PM , 03:21 PM
[2018-09-11 17:06] LABS: Thyroid Stimulating Hormone 1.06 uIU/mL (0.358-3.740)
[2018-09-11] MEDS: Acetaminophen 325 MG Tablet PO PRN (21:42)
[2018-09-12 07:15] LABS: Baso % (Auto) 0.5 % (0.0-2.0); Eos # (Auto) 0.1 th/mm3 (0.0-0.4); Eos % (Auto) 1.5 % (0.0-4.0); Hematocrit 44.7 % (39.0-51.0); Hemoglobin 15.2 gm/dL (13.0-17.0); Lymph # (Auto) 2.3 th/mm3 (1.0-4.8); Lymph % (Auto) 38.1 % (9.0-44.0); Mean Corpuscular HGB Conc 33.9 % (32.0-36.0); Mean Corpuscular Hemoglobin 31.6 pg (27.0-34.0); Mean Corpuscular Volume 93.3 fL (80.0-100.0); Mean Platelet Volume 8.5 fL (7.0-11.0); Mono # (Auto) 0.6 th/mm3 (0.0-0.9); Mono % (Auto) 9.5 % (0.0-8.0); Neut % (Auto) 50.4 % (16.0-70.0); Platelet Count 173 th/mm3 (150-450); Red Blood Count 4.79 mil/mm3 (4.50-5.90); Red Cell Distribution Width 13.4 % (11.6-17.2)
[2018-09-12 07:44] LABS: Alanine Aminotransferase 20 U/L (12-78)
[2018-09-12 07:47] LABS: Alkaline Phosphatase 66 U/L (45-117); Total Protein 7.2 g/dL (6.4-8.2)
[2018-09-12 07:58] LABS: Albumin 3.9 g/dL (3.4-5.0); Anion Gap 7 meq/L (5-15); Aspartate Aminotransferase 22 U/L (15-37); Blood Urea Nitrogen 15 mg/dL (7-18); Calcium 9.1 mg/dL (8.5-10.1); Carbon Dioxide 29.3 meq/L (21.0-32.0); Chloride 105 meq/L (98-107); Glomerular Filtration Rate 66 mL/min (>89); Glucose,Random 99 mg/dL (74-106); Sodium 141 meq/L (136-145)
[2018-09-12] MEDS: traZODone 50 MG Tablet PO SCH (08:21)
[2018-09-12] MEDS: Sertraline 50 MG Tablet PO SCH (08:21)
--- NOTE | 2018-09-12 09:35 | P.RAD ---
Post Procedure Progress Note - Pre Procedure Diagnosis (1) Myelitis - Post Procedure Diagnosis (1) Myelitis - Procedure Information Procedure Date: 09/12/18 Supervising Radiologist: HALLE Pathak Assisting Physician: Mamadou Webb Estimated blood loss (mL): 0 Anesthesia: Local - Plan of Activity Patient to Unit: ROPU Patient Condition: Good Additional Comments: 10 cc's of clear spinal fluid was successfully withdrawn without any difficulty or complications. Patient tolerated the procedure well. See PACS Report for procedural detail/treatment.
--- NOTE | 2018-09-12 09:40 | IR ---
EXAM DATE: 09/12/2018 9:37 AM EST AGE/SEX: 33 years / Male INDICATIONS: Patient presents with bilateral lower extremity weakness in need for a Lumbar Puncture for diagnosis. CLINICAL DATA: This is the patient's initial encounter. Patient reports that signs and symptoms have been present for 2 weeks and indicates a pain score of 5/10. MEDICAL/SURGICAL HISTORY: Seizures. Spinal stenosis, Degenerative disc disease, Facet degenerat ion of lumbar region, PTSD. Appendectomy. Shoulder surgery. COMPARISON: No prior exams available for comparison. FLUORO TIME (min): 14.7 IMAGE SERIES: 2 ACCESS SITE: L3-4 LUMBAR PUNCTURE TIME: 0855 hours FLUID: Total volume of 10 cc of clear fluid was removed. Fluid was sent to lab for ordered studies. ; . . PROCEDURE: 1. Fluoroscopic guided lumbar puncture. The risks, benefits and alternatives to the procedure were explained and verbal and written consent w as obtained. The site was prepped in sterile fashion. Full sterile technique was used, including ca p, mask, sterile gloves and gown and a large sterile sheet. Hand hygiene and 2% chlorhexidine and/or betadine/alcohol prep was utilized per protocol for cutaneous antisepsis. The skin and subcutaneous tissues were infiltrated with local anesthetic solution. With fluoroscopic guidance the lumbar thecal sac was punctured at the level above. The fluid describ ed above was removed without difficulty. The patient tolerated the procedure well and there were no complications. CONCLUSION: 1. Uncomplicated fluoroscopically guided lumbar puncture. Electronically signed by: Mamadou Webb MD 09/12/2018 9:39 AM EST
[2018-09-12 09:51] LABS: Total Protein,CSF 50.4 mg/dL (15.0-45.0)
--- NOTE | 2018-09-12 10:21 | P.PNIM ---
Subjective Interval history: Lumbar puncture today. Further workup screening for transverse myelitis. Patient does show marked improvement in ambulation today, though I believe unsteady. No new complaints from patient. Physical Exam Vital signs: Vital Signs 09/11/18 12:00 09/11/18 19:32 09/11/18 23:27 Temperature 98.1 F 98.5 F 97.7 F Pulse Rate 62 66 71 Respiratory Rate 16 16 16 Blood Pressure 103/63 118/73 109/67 Pulse Oximetry 98 97 95 09/12/18 03:37 09/12/18 08:10 Temperature 97.6 F 97.5 F L Pulse Rate 65 53 L Respiratory Rate 16 18 Blood Pressure 107/60 108/63 Pulse Oximetry 96 97 Intake & Output 09/11/18 09/12/18 09/12/18 18:59 06:59 18:59 Intake Total 750 / 750 Balance 750 / 750 Intake: Oral 750 / 750 Other: # Voids 3 3 Narrative: GENERAL: NAD, A&Ox3 HEAD: Normocephalic. NECK: Supple, trachea midline. No lymphadenopathy. EYES: No scleral icterus. No injection or drainage. CARDIOVASCULAR: Regular rate and rhythm without murmurs, gallops, or rubs. RESPIRATORY: Breath sounds equal bilaterally. No accessory muscle use. GASTROINTESTINAL: Abdomen soft, non-tender, nondistended. MUSCULOSKELETAL: No cyanosis, or edema. SKIN: Warm and dry. NEURO: Bilateral lower extremity weakness, 2 out of 5 strength. Decreased sensory to lower extremities.. Results - Labs CBC & Chem 7: 09/12/18 06:05 09/12/18 06:05 Laboratory Results - last 24 hr 09/10/18 09/11/18 09/12/18 19:36 18:35 06:05 WBC 6.0 RBC 4.79 Hgb 15.2 Hct 44.7 MCV 93.3 MCH 31.6 MCHC 33.9 RDW 13.4 Plt Count 173 MPV 8.5 Neut % (Auto) 50.4 Lymph % (Auto) 38.1 [place] % (Auto) 9.5 H Eos % (Auto) 1.5 Baso % (Auto) 0.5 Neut # (Auto) 3.0 Lymph # (Auto) 2.3 [place] # (Auto) 0.6 Eos # (Auto) 0.1 Baso # (Auto) 0.0 WBC Differential . Differential Comment Auto diff final PT 10.0 INR 1.0 Sodium Potassium Chloride Carbon Dioxide Anion Gap BUN Creatinine Estimated GFR Random Glucose Calcium Total Bilirubin AST ALT Alkaline Phosphatase Total Protein Albumin Vitamin B12 496 TSH 1.060 CSF Glucose CSF Total Protein 09/12/18 09/12/18 06:05 08:55 WBC RBC Hgb Hct MCV MCH MCHC RDW Plt Count MPV Neut % (Auto) Lymph % (Auto) [place] % (Auto) Eos % (Auto) Baso % (Auto) Neut # (Auto) Lymph # (Auto) [place] # (Auto) Eos # (Auto) Baso # (Auto) WBC Differential Differential Comment PT INR Sodium 141 Potassium 4.0 Chloride 105 Carbon Dioxide 29.3 Anion Gap 7 BUN 15 Creatinine 1.26 Estimated GFR 66 L Random Glucose 99 Calcium 9.1 Total Bilirubin 0.4 AST 22 ALT 20 Alkaline Phosphatase 66 Total Protein 7.2 D Albumin 3.9 Vitamin B12 TSH CSF Glucose 63 CSF Total Protein 50.4 H - Imaging Impressions Lumbar Puncture Fluoroscopy 09/12/18 00:00 CONCLUSION: 1. Uncomplicated fluoroscopically guided lumbar puncture. Assessment and Plan - Plan 33-year-old male admitted secondary to acute onset of lower extremity paraplegia Lumbar puncture today. Neurology is screening for transverse myelitis. Further screenings occurring also. No acute changes per patient. Steroids initiated. Continue physical therapy. Acute onset lower extremity paraplegia bilateral lower extremity weakness Urinary incontinence History of C5 spinal stenosis (mild) No evidence of severe stenosis on imaging No evidence of CVA or MS on imaging of brain and spine Neurology following Continue physical therapy PTSD chronic benzodiazepine use Resumed at lower doses and baseline to prevent withdrawal DVT prophylaxis SCDs contraindicated due to sensory deficit Until bleed is ruled out we will avoid anticoagulation
[2018-09-12 10:36] LABS: Lymphocytes, CSF 100 %; Neutrophils,CSF 0 %; RBC on Tube 4 0 /mm3
[2018-09-12] MEDS: MethylPREDNISolone Sod Succinate Inj 40 MG/ML Vial IV.PUSH SCH ×2 (12:41→13:38)
--- NOTE | 2018-09-12 17:45 | P.PNNEU ---
Subjective Subjective Comments: Pt reports improvement in LE strength since solumedrol started Active Medications: Active Medications Acetaminophen (Tylenol) 650 mg PO Q4H PRN PRN Reason: temp> 100.4/pain Last Admin: 09/11/18 21:42 Dose: 650 mg Bisacodyl (Dulcolax Supp) 10 mg RECTAL DAILY PRN PRN Reason: SEVERE CONSITIPATION Buspirone HCl (Buspar) 10 mg PO TID [facility] Last Admin: 09/12/18 12:41 Dose: 10 mg Lorazepam (Ativan) 0.5 mg PO Q6H PRN PRN Reason: ANXIETY Methylprednisolone Sodium Succinate (Solumedrol Inj) 40 mg IV.PUSH Q8HR [facility] Last Admin: 09/12/18 13:38 Dose: 40 mg Ondansetron HCl (Zofran Inj) 4 mg IV.PUSH Q6H PRN PRN Reason: NAUSEA OR VOMITING Sennosides (Senokot) 17.2 mg PO Q12H PRN PRN Reason: Moderate Constipation Sertraline HCl (Zoloft) 150 mg PO DAILY [facility] Last Admin: 09/12/18 08:21 Dose: 150 mg Trazodone HCl (Desyrel) 150 mg PO DAILY [facility] Last Admin: 09/12/18 08:21 Dose: Not Given Allergies/Adverse Reactions: Allergies Allergy/AdvReac Type Severity Reaction Status Date / Time No Known Allergies Allergy Verified 09/10/18 17:55 Physical Exam Vital signs: Vital Signs 09/11/18 19:32 09/11/18 23:27 09/12/18 03:37 Temperature 98.5 F 97.7 F 97.6 F Pulse Rate 66 71 65 Respiratory Rate 16 16 16 Blood Pressure 118/73 109/67 107/60 Pulse Oximetry 97 95 96 09/12/18 08:10 09/12/18 11:52 09/12/18 15:16 Temperature 97.5 F L 98.2 F 97.8 F Pulse Rate 53 L 67 67 Respiratory Rate 18 18 18 Blood Pressure 108/63 112/60 114/67 Pulse Oximetry 97 97 96 Intake & Output 09/11/18 09/12/18 09/12/18 18:59 06:59 18:59 Intake Total 750 / 750 Balance 750 / 750 Intake: Oral 750 / 750 Other: # Voids 3 3 - Routine Neurological Exam alert, speech normal Cn intact MOTOR-5/5 BUE, 4/5 bilateral iliopsoas, quads, hamstring, tibialis anterior DTR--3+patellar and ankle DTR bilaterally , equivocal Babinski bilaterally Objective Laboratory Results - last 24 hr 09/11/18 09/12/18 09/12/18 18:35 06:05 06:05 WBC 6.0 RBC 4.79 Hgb 15.2 Hct 44.7 MCV 93.3 MCH 31.6 MCHC 33.9 RDW 13.4 Plt Count 173 MPV 8.5 Neut % (Auto) 50.4 Lymph % (Auto) 38.1 Gulf % (Auto) 9.5 H Eos % (Auto) 1.5 Baso % (Auto) 0.5 Neut # (Auto) 3.0 Lymph # (Auto) 2.3 Gulf # (Auto) 0.6 Eos # (Auto) 0.1 Baso # (Auto) 0.0 WBC Differential . Differential Comment Auto diff final PT 10.0 INR 1.0 Sodium 141 Potassium 4.0 Chloride 105 Carbon Dioxide 29.3 Anion Gap 7 BUN 15 Creatinine 1.26 Estimated GFR 66 L Random Glucose 99 Calcium 9.1 Total Bilirubin 0.4 AST 22 ALT 20 Alkaline Phosphatase 66 Total Protein 7.2 D Albumin 3.9 CSF Volume (1) CSF Supernat Color (1) CSF Gross Blood (1) CSF Volume (2) CSF Supernat Color (2) CSF Gross Blood (2) CSF Volume (3) CSF Supernat Color (3) CSF Gross Blood (3) CSF Volume (4) CSF Supernat Color (4) CSF Gross Blood (4) CSF WBC (4) CSF RBC (4) CSF Neutrophils % CSF Lymphocytes % CSF Glucose CSF Total Protein 09/12/18 09/12/18 08:55 08:55 WBC RBC Hgb Hct MCV MCH MCHC RDW Plt Count MPV Neut % (Auto) Lymph % (Auto) Gulf % (Auto) Eos % (Auto) Baso % (Auto) Neut # (Auto) Lymph # (Auto) Gulf # (Auto) Eos # (Auto) Baso # (Auto) WBC Differential Differential Comment PT INR Sodium Potassium Chloride Carbon Dioxide Anion Gap BUN Creatinine Estimated GFR Random Glucose Calcium Total Bilirubin AST ALT Alkaline Phosphatase Total Protein Albumin CSF Volume (1) 1.8 CSF Supernat Color (1) Clear CSF Gross Blood (1) 0 CSF Volume (2) 2.0 CSF Supernat Color (2) Clear CSF Gross Blood (2) 0 CSF Volume (3) 2.0 CSF Supernat Color (3) Clear CSF Gross Blood (3) 0 CSF Volume (4) 3.8 CSF Supernat Color (4) Clear CSF Gross Blood (4) 0 CSF WBC (4) 2 CSF RBC (4) 0 CSF Neutrophils % 0 CSF Lymphocytes % 100 CSF Glucose 63 CSF Total Protein 50.4 H Microbiology 09/12/18 08:55 Gram Stain - Final Lumbar Puncture Review/Management - Review/Management Plan: probably transverse myelitis. Hyper reflexia is against Gu[place]. elevated csf protein can be seen in both. MRI brain normal without evidence of ms recommend--increase solumedrol and continue 5 days. follow up remaining csf studies
[2018-09-12] MEDS ORDERED: MethylPREDNISolone Sod Succinate Inj 40 MG/ML Vial IV.PUSH SCH (18:00)
[2018-09-12] MEDS: Famotidine 20 MG Tablet PO SCH (18:28)
[2018-09-12] MEDS: MethylPREDNISolone Sod Suc Inj 250 MG in Sodium Chlor 0.9% Inj 100 ML IV.SIG SCH ×2 (19:11→23:57)
[2018-09-13] MEDS: Acetaminophen 325 MG Tablet PO PRN (01:07)
[2018-09-13] MEDS: MethylPREDNISolone Sod Suc Inj 250 MG in Sodium Chlor 0.9% Inj 100 ML IV.SIG SCH ×3 (05:27→19:01)
[2018-09-13] MEDS: Famotidine 20 MG Tablet PO SCH ×2 (05:27→19:01)
[2018-09-13] MEDS: Sertraline 50 MG Tablet PO SCH (08:13)
[2018-09-13] MEDS: traZODone 50 MG Tablet PO SCH ×2 (09:40→21:10)
[2018-09-13] MEDS: Butalbital/ASA/Caff 50/325/40 Capsule PO PRN (10:51)
--- NOTE | 2018-09-13 11:24 | P.PNIM ---
Subjective Interval history: Patient able ambulate with walker and wheelchair assistance. Plan for 5 days of high-dose steroids, currently on day 1 out of 5. No new complaints from the patient. Physical Exam Vital signs: Last Vital Signs Temp 97.7 F 09/13/18 04:00 Pulse 83 09/13/18 08:00 Resp 16 09/13/18 08:00 BP 110/57 L 09/13/18 08:00 Pulse Ox 97 09/13/18 08:00 Intake & Output 09/11/18 09/12/18 09/13/18 09/14/18 06:59 06:59 06:59 06:59 Intake Total 750 / 750 520 / 520 Balance 750 / 750 520 / 520 Weight 75.75 kg 57.1 kg Narrative: GENERAL: NAD, A&Ox3 HEAD: Normocephalic. NECK: Supple, trachea midline. No lymphadenopathy. EYES: No scleral icterus. No injection or drainage. CARDIOVASCULAR: Regular rate and rhythm without murmurs, gallops, or rubs. RESPIRATORY: Breath sounds equal bilaterally. No accessory muscle use. GASTROINTESTINAL: Abdomen soft, non-tender, nondistended. MUSCULOSKELETAL: No cyanosis, or edema. SKIN: Warm and dry. NEURO: Bilateral lower extremity weakness, 2 out of 5 strength. Decreased sensory to lower extremities.. Results Labs CBC & Chem 7: 09/12/18 06:05 09/12/18 06:05 Labs: Microbiology 09/12/18 08:55 Lumbar Puncture Gram Stain - Final 09/12/18 08:55 Lumbar Puncture CSF Culture - Preliminary No growth in 24 hours Assessment and Plan Plan 33-year-old male admitted secondary to acute onset of lower extremity paraplegia Combining evidence on lumbar puncture with physical exam, neurology feels this is likely transverse myelitis. High-dose steroids discontinued. Patient will have a total of 5 days of high-dose steroids prior to consideration for discharge. Further see if the studies pending. Acute onset lower extremity paraplegia bilateral lower extremity weakness Urinary incontinence History of C5 spinal stenosis (mild) No evidence of severe stenosis on imaging No evidence of CVA or MS on imaging of brain and spine Neurology following Continue physical therapy PTSD chronic benzodiazepine use Resumed at lower doses and baseline to prevent withdrawal DVT prophylaxis SCDs contraindicated due to sensory deficit Until bleed is ruled out we will avoid anticoagulation Progress Note: Quality VTE Deep Vein Thrombosis/Pulmonary Embolism Present on Admission: No
--- NOTE | 2018-09-13 12:17 | P.DCO ---
Physical Therapy Order: Evaluate and treat, Improve ambulation and Strength and gait training Occupational Therapy Order: Evaluate and treat, Improve ADL, Gross motor coordination and Fine motor coordination Home Health Nursing Order: Medical education and Signs/symptoms of disease process Case Management Consult Case Management Consult-Home Health: Yes I have seen patient Mauricio Greene on 09/13/18. My clinical findings support the need for the requested home health care services because: Limited mobility due to disease progression, Deconditioned with increased weakness, Limited ability to care for self and High risk of falls I certify that my clinical findings support that this patient is homebound because: Unsteady gait/balance, Unsafe to leave home unassisted and Unable to use public transportation
--- NOTE | 2018-09-13 18:05 | P.PNNEU ---
Subjective Subjective Comments: tolerating steroids. He feels some improvement in LE strength but still v weak Active Medications: Active Medications Acetaminophen (Tylenol) 650 mg PO Q4H PRN PRN Reason: temp> 100.4/pain Last Admin: 09/13/18 01:07 Dose: 650 mg Bisacodyl (Dulcolax Supp) 10 mg RECTAL DAILY PRN PRN Reason: SEVERE CONSITIPATION Buspirone HCl (Buspar) 10 mg PO BID [facility] Butalbital/Aspirin/Caffeine (Fiorinal 50-325-40 Mg) 1 cap PO Q4H PRN PRN Reason: HEADACHE Last Admin: 09/13/18 10:51 Dose: 1 cap Famotidine (Pepcid) 20 mg PO BID@0600,1800 [facility] Last Admin: 09/13/18 05:27 Dose: 20 mg Methylprednisolone Sodium Succinate 250 mg/ Sodium Chloride 104 mls @ 208 mls/ hr IV.SIG Q6HR [facility] Last Infusion: 09/13/18 12:44 Dose: Infused Lorazepam (Ativan) 0.5 mg PO Q6H PRN PRN Reason: ANXIETY Ondansetron HCl (Zofran Inj) 4 mg IV.PUSH Q6H PRN PRN Reason: NAUSEA OR VOMITING Sennosides (Senokot) 17.2 mg PO Q12H PRN PRN Reason: Moderate Constipation Sertraline HCl (Zoloft) 150 mg PO DAILY [facility] Last Admin: 09/13/18 08:13 Dose: 150 mg Trazodone HCl (Desyrel) [address] [facility] Allergies/Adverse Reactions: Allergies Allergy/AdvReac Type Severity Reaction Status Date / Time No Known Allergies Allergy Verified 09/10/18 17:55 Physical Exam Vital signs: Vital Signs 09/12/18 20:00 09/12/18 23:30 09/13/18 04:00 Temperature 97.5 F L 98.2 F 97.7 F Pulse Rate 81 73 67 Respiratory Rate 16 16 12 Blood Pressure 118/73 114/65 99/58 L Pulse Oximetry 95 96 95 09/13/18 08:00 09/13/18 11:28 09/13/18 16:08 Temperature 97.4 F L Pulse Rate 83 74 79 Respiratory Rate 16 16 16 Blood Pressure 110/57 L 120/65 119/59 L Pulse Oximetry 97 99 98 Intake & Output 09/12/18 09/13/18 09/13/18 18:59 06:59 18:59 Intake Total 520 / 520 104 / 104 Balance 520 / 520 104 / 104 Weight 57.1 kg Intake: IV 312 / 312 104 / 104 SoluMEDROL Inj 250 MG In NS Inj 312 / 312 104 / 104 100 ML @ 208 mls/hr IV.SIG Q6HR [facility] Rx#:[id number] Other 208 / 208 Other: Other Intake Source Saline Solution # Voids 3 3 Date of Last Bowel Movement 09/12/18 - Routine Neurological Exam alert, speech normal CN intact MOTOR 5/5 BUE, 4/5 BLE proximal and distal Objective Laboratory Results - last 24 hr 09/12/18 09/12/18 10:17 10:17 CSF Albumin 25.7 CSF IgG 2.5 Serum IgG 918 Serum Albumin 4340 Serum IgG/Albumin 0.2 CSF IgG/Albumin 0.10 CSF IgG Synthesis Rate 0 Ser Oligoclonal Bands 0 CSF Oligoclonal Bands 0 CSF/Serum IgG Index 0.48 CSF Olig Protein Interp 0 Microbiology 09/12/18 08:55 Gram Stain - Final Lumbar Puncture CSF Culture - Preliminary No growth in 24 hours Review/Management - Review/Management Plan: probably transverse myelitis. continue iv solumedrol through Sunday am check anti-NMO antibody
[2018-09-14] MEDS: MethylPREDNISolone Sod Suc Inj 250 MG in Sodium Chlor 0.9% Inj 100 ML IV.SIG SCH ×4 (00:16→17:53)
[2018-09-14] MEDS: Famotidine 20 MG Tablet PO SCH ×2 (05:19→17:53)
[2018-09-14] MEDS: Sertraline 50 MG Tablet PO SCH (10:11)
--- NOTE | 2018-09-14 12:19 | P.PNIM ---
Subjective Interval history: Pt seen and examined for f/u transverse myelitis. Reports increasing sensation in his lower extremities and slightly improving strength and mobility. States he is able to wiggle his toes, dorsi- and plantarflex his feet, light his heels off the bed, and slightly bend his knees in bed. He is ambulating with PT. He denies any other symptoms including chest pain, abdominal pain, nausea, or vomiting. Does endorse some mild dyspnea when he is ambulating but he attributes this to deconditioning. He is able to urinate and has no issues with retention or incontinence. Physical Exam Vital signs: Vital Signs 09/13/18 16:08 09/13/18 20:00 09/14/18 00:00 Temperature 97.4 F L 98.0 F 98.3 F Pulse Rate 79 67 60 Respiratory Rate 16 17 17 Blood Pressure 119/59 L 105/50 L 87/52 L Pulse Oximetry 98 95 96 09/14/18 01:35 09/14/18 04:00 09/14/18 08:00 Temperature 97.5 F L 98.0 F Pulse Rate 66 59 L Respiratory Rate 17 16 Blood Pressure 105/55 L 105/57 L 101/56 L Pulse Oximetry 95 94 L 09/14/18 11:36 Temperature 98.1 F Pulse Rate 68 Respiratory Rate 16 Blood Pressure 117/62 Pulse Oximetry 98 Intake & Output 09/13/18 09/14/18 09/14/18 18:59 06:59 18:59 Intake Total 104 / 104 312 / 312 Balance 104 / 104 312 / 312 Weight 57.1 kg Intake: IV 104 / 104 312 / 312 SoluMEDROL Inj 250 MG In NS Inj 104 / 104 312 / 312 100 ML @ 208 mls/hr IV.SIG Q6HR [facility] Rx#:[id number] Other: # Voids 3 Date of Last Bowel Movement 09/12/18 09/12/18 Narrative: GENERAL: WN, WD pleasant male resting in bed in NAD. SKIN: Warm and dry. No rashes or jaundice. HEENT: AT/NC. Pupils equal and round. MMM. HEART: RRR no m/r/g. LUNGS: CTAB without wheezes or crackles. ABDOMEN: +BS, soft, NT, ND. EXTREMITIES: No LE edema. 2+ pedal pulses. Calves supple and nontender. NEURO: Patient has sensation in his lower extremities but cannot differentiate sharp from dull. He is able to wiggle his toes, plantar and dorsiflex his feet, float his heels, and bend his knees in bed. PSYCH: Appropriate mood and affect. Results - Labs CBC & Chem 7: 09/12/18 06:05 09/12/18 06:05 Laboratory Results - last 24 hr 09/12/18 09/12/18 10:17 10:17 CSF Albumin 25.7 CSF IgG 2.5 Serum IgG 918 Serum Albumin 4340 Serum IgG/Albumin 0.2 CSF IgG/Albumin 0.10 CSF IgG Synthesis Rate 0 Ser Oligoclonal Bands 0 CSF Oligoclonal Bands 0 CSF/Serum IgG Index 0.48 CSF Olig Protein Interp 0 Microbiology 09/12/18 08:55 Lumbar Puncture Gram Stain - Final 09/12/18 08:55 Lumbar Puncture CSF Culture - Preliminary No growth in 48 hours Assessment and Plan - Assessment (1) Transverse myelitis Code(s): G37.3 - Acute transverse myelitis in demyelinating disease of central nervous system Status: Acute - Plan 33-year-old male admitted secondary to acute onset of bilateral lower extremity paraplegia. 1. Transverse myelitis - No evidence of CVA or MS on imaging of brain and spine - No evidence of severe stenosis - Combining evidence on lumbar puncture with physical exam, neurology feels this is likely transverse myelitis - Neurology following - Continue IV steroids (through Sunday AM per neuro) - PT following 2. PTSD - Pt with chronic benzodiazepine use - Resumed at lower doses to prevent withdrawal - Continue bedtime trazodone DVT prophylaxis: Lovenox Discharge Planning: Anticipate D/C on completion of IV steroids on Sunday. Pt to resume PT with [facility]
[2018-09-14] MEDS: Butalbital/ASA/Caff 50/325/40 Capsule PO PRN (20:02)
[2018-09-14] MEDS: traZODone 50 MG Tablet PO SCH (20:02)
[2018-09-14] MEDS: Heparin - SQ 10,000 UNITS/ML Vial SQ SCH (20:04)
[2018-09-15] MEDS: MethylPREDNISolone Sod Suc Inj 250 MG in Sodium Chlor 0.9% Inj 100 ML IV.SIG SCH ×5 (00:23→23:40)
[2018-09-15] MEDS: Famotidine 20 MG Tablet PO SCH ×2 (06:18→17:28)
[2018-09-15] MEDS: Sertraline 50 MG Tablet PO SCH (09:59)
[2018-09-15] MEDS: Heparin - SQ 10,000 UNITS/ML Vial SQ SCH ×2 (10:03→23:39)
--- NOTE | 2018-09-15 13:23 | P.PN ---
Subjective Interval history: Follow up for transverse myelitis: Patient seen and examined, awake, alert oriented x3. States that he has increased mobility some, has been walking with physical therapy with one assist, improved sensation. Able to wiggle toes, lift feet off bed and bend knees. Feels some weakness in his arms, can't lift above head. No acute changes overnight. No n/v/d. C/O fatiguing easily Physical Exam Vital signs: Vital Signs 09/14/18 16:00 09/14/18 20:00 09/15/18 00:00 Temperature 97.5 F L 97.8 F 97.3 F L Pulse Rate 58 L 71 57 L Respiratory Rate 18 20 20 Blood Pressure 116/65 141/65 H 125/75 Pulse Oximetry 96 95 95 09/15/18 04:00 09/15/18 08:00 Temperature 97.7 F 97.8 F Pulse Rate 54 L 53 L Respiratory Rate 20 16 Blood Pressure 119/65 110/71 Pulse Oximetry 94 L 96 Intake & Output 09/14/18 09/15/18 09/15/18 18:59 06:59 18:59 Intake Total Output Total 0 / 0 Balance Weight 83.9 kg Intake: IV SoluMEDROL Inj 250 MG In NS Inj 100 ML @ 208 mls/hr IV.SIG Q6HR [facility] Rx#:[id number] Output: Urine 0 / 0 Other: # Voids 0 Date of Last Bowel Movement 09/12/18 09/12/18 Narrative: GENERAL: 33-year-old well-developed well-nourished male. No apparent distress. SKIN: Warm and dry. No rashes or jaundice. HEENT: AT/NC. Pupils equal and round. MMM. HEART: RRR no m/r/g. LUNGS: Lung sounds clear to auscultations, no adventitious breath sounds ABDOMEN: +BS, soft, NT, ND. EXTREMITIES: No LE edema. 2+ pedal pulses. NEURO: Patient awake, alert oriented x3. Speech clear. Has intact sensation lower extremities, able to wiggle his toes, plantar and dorsiflex his feet, float his heels, and bend his knees in bed. Patellar reflexes hyper reflexive. Bilateral upper extremity strength 3-4 out of 5. PSYCH: Appropriate mood and affect. Results - Labs CBC & Chem 7: 09/12/18 06:05 09/12/18 06:05 Microbiology 09/12/18 08:55 Lumbar Puncture Gram Stain - Final 09/12/18 08:55 Lumbar Puncture CSF Culture - Final No growth in 72 hours Assessment and Plan - Assessment (1) Transverse myelitis Code(s): G37.3 - Acute transverse myelitis in demyelinating disease of central nervous system Status: Acute - Plan 33-year-old male admitted secondary to acute onset of bilateral lower extremity paraplegia. 1. Transverse myelitis - No evidence of CVA or MS on imaging of brain and spine - No evidence of severe stenosis - Combining evidence on lumbar puncture with physical exam, neurology feels this is likely transverse myelitis - Neurology following - Continue IV steroids (through Sunday AM per neuro) - PT/OT following -some improvement, but still weak. C/O weakness to arms. 2. PTSD - Pt with chronic benzodiazepine use - Resumed at lower doses to prevent withdrawal - Continue bedtime trazodone DVT prophylaxis: Lovenox CM consult for dc planning, pt. has already contacted [place] for home health services as well. He lives alone but has a friend who is willing to help. Code Status: Full code Discussed Condition With: RN, pt, CM Discharge Planning: Home with [facility] poss Sunday when cleared by neurology
[2018-09-15] MEDS: Butalbital/ASA/Caff 50/325/40 Capsule PO PRN (23:39)
[2018-09-15] MEDS: traZODone 50 MG Tablet PO SCH (23:39)
[2018-09-16] MEDS: MethylPREDNISolone Sod Suc Inj 250 MG in Sodium Chlor 0.9% Inj 100 ML IV.SIG SCH ×4 (06:05→23:58)
[2018-09-16] MEDS: Famotidine 20 MG Tablet PO SCH ×2 (09:18→18:30)
[2018-09-16] MEDS: Sertraline 50 MG Tablet PO SCH (09:18)
[2018-09-16] MEDS: Heparin - SQ 10,000 UNITS/ML Vial SQ SCH ×2 (09:19→21:18)
--- NOTE | 2018-09-16 16:15 | P.PN ---
Subjective Interval history: Follow up for transverse myelitis: Patient seen and examined, worked with PT today, ambulated with assist and did ADLs. Lower extremity weakness fair, legs feel heavy and "tight" today. Not bending knees as much. BUE remains weak, unchanged. Some urinary incontinence. C/O constipations, stools firm. Appetite okay, no n/v. [facility] [place] Physical Exam Vital signs: Vital Signs 09/15/18 20:43 09/16/18 00:00 09/16/18 04:00 Temperature 98.2 F 98.3 F 98.2 F Pulse Rate 60 53 L 49 L Respiratory Rate 20 20 20 Blood Pressure 136/70 129/74 123/70 Pulse Oximetry 95 95 94 L 09/16/18 08:00 09/16/18 12:00 Temperature 97.8 F 97.5 F L Pulse Rate 76 74 Respiratory Rate 20 20 Blood Pressure 121/71 126/65 Pulse Oximetry 95 95 Intake & Output 09/15/18 09/16/18 09/16/18 18:59 06:59 18:59 Intake Total 208 / 208 208 / 208 Balance 208 / 208 208 / 208 Weight 85.1 kg Intake: IV 208 / 208 208 / 208 SoluMEDROL Inj 250 MG In NS Inj 208 / 208 208 / 208 100 ML @ 208 mls/hr IV.SIG Q6HR [facility] Rx#:[id number] Other: Date of Last Bowel Movement 09/12/18 09/12/18 Narrative: GENERAL: 33-year-old well-developed well-nourished male. No apparent distress. SKIN: Warm and dry. No rashes or jaundice. HEENT: AT/NC. Pupils equal and round. MMM. HEART: RRR no m/r/g. LUNGS: Lung sounds clear to auscultations, no adventitious breath sounds ABDOMEN: +BS, soft, NT, ND. EXTREMITIES: No LE edema. 2+ pedal pulses. NEURO: Patient awake, alert oriented x3. Speech clear. Has intact sensation lower extremities, able to wiggle his toes, plantar and dorsiflex his feet, float his heels, barely bends his knees in bed. Patellar reflexes hyper reflexive. Bilateral upper extremity strength 3-4 out of 5. PSYCH: Appropriate mood and affect. Results - Labs CBC & Chem 7: 09/12/18 06:05 09/12/18 06:05 Assessment and Plan - Assessment (1) Transverse myelitis Code(s): G37.3 - Acute transverse myelitis in demyelinating disease of central nervous system Status: Acute - Plan 33-year-old male admitted secondary to acute onset of bilateral lower extremity paraplegia. 1. Transverse myelitis - No evidence of CVA or MS on imaging of brain and spine - No evidence of severe stenosis - Combining evidence on lumbar puncture with physical exam, neurology feels this is likely transverse myelitis - Neurology following - Continue IV steroids (today last dose) - PT/OT following -some improvement, but still weak. C/O weakness to arms. -will need clearance from neurology. 2. PTSD - Pt with chronic benzodiazepine use - Resumed at lower doses to prevent withdrawal - Continue bedtime trazodone 3. Constipation -add Miralax daily DVT prophylaxis: Lovenox CM consult for dc planning, pt. has already contacted [place] for home health services as well. He lives alone but has a friend who is willing to help. Code Status: Full code Discussed Condition With: RN, pt, CM Discharge Planning: Home with [facility] poss Sunday when cleared by neurology
[2018-09-16] MEDS: Polyethylene Glycol 3350 17 GM Packet PO SCH (18:29)
[2018-09-16] MEDS: traZODone 50 MG Tablet PO SCH (21:18)
[2018-09-17] MEDS: Famotidine 20 MG Tablet PO SCH ×2 (06:12→17:52)
[2018-09-17] MEDS: MethylPREDNISolone Sod Suc Inj 250 MG in Sodium Chlor 0.9% Inj 100 ML IV.SIG SCH ×3 (06:12→17:53)
[2018-09-17] MEDS: Heparin - SQ 10,000 UNITS/ML Vial SQ SCH ×2 (08:23→21:19)
[2018-09-17] MEDS: Sertraline 50 MG Tablet PO SCH (08:23)
[2018-09-17] MEDS: Polyethylene Glycol 3350 17 GM Packet PO SCH (08:26)
--- NOTE | 2018-09-17 09:57 | P.PNIM ---
Subjective Interval history: Follow up for transverse myelitis. Patient seen and examined today. Reports continued had to have bilateral lower extremity weakness. Unable to stand up but able to propel himself from wheelchair to bed as witnessed. Reports on and off constipation, urinary incontinence. Denies any fevers, chills, nausea, vomiting, diarrhea. Denies any chest pain, palpitations. Complains of lower extremity pain, back pain. Reports headaches states it is dull, pounding pulsating, unrelieved by repositioning, aggravated by getting out of bed in the morning, also at night. States caffeine is helping a little bit. Takes 2 sodas a day. Physical Exam Vital signs: Vital Signs 09/16/18 12:00 09/16/18 16:00 09/16/18 20:00 Temperature 97.5 F L 97.8 F 97.7 F Pulse Rate 74 64 69 Respiratory Rate 20 20 20 Blood Pressure 126/65 136/63 125/71 Pulse Oximetry 95 96 96 09/17/18 00:00 09/17/18 02:05 09/17/18 04:00 Temperature 97.6 F 98 F Pulse Rate 59 L 54 L Respiratory Rate 18 16 18 Blood Pressure 121/64 122/67 Pulse Oximetry 96 94 L 09/17/18 08:00 Temperature 97.9 F Pulse Rate 55 L Respiratory Rate 20 Blood Pressure 120/69 Pulse Oximetry 95 Intake & Output 09/16/18 09/17/18 09/17/18 18:59 06:59 18:59 Intake Total 824 / 824 312 / 312 Output Total 2 / 2 Balance 822 / 822 312 / 312 Weight 85.1 kg Intake: IV 104 / 104 312 / 312 SoluMEDROL Inj 250 MG In NS Inj 104 / 104 312 / 312 100 ML @ 208 mls/hr IV.SIG Q6HR [facility] Rx#:[id number] Oral 720 / 720 Output: Urine 2 / 2 Other: # Voids 2 Date of Last Bowel Movement 09/12/18 09/15/18 Narrative: GENERAL: This is a well-nourished, well-developed male patient, in no apparent distress. SKIN: Warm and dry HEENT: Normocephalic. Pupils equal round and reactive. Nose without bleeding. Airway patent. NECK: Trachea midline. CARDIOVASCULAR: Regular rate and rhythm without murmurs, gallops, or rubs. RESPIRATORY: Clear to auscultation. Breath sounds equal bilaterally. No wheezes , rales, or rhonchi. GASTROINTESTINAL: Abdomen soft, non-tender, nondistended. Bowel Sounds normoactive x4. MUSCULOSKELETAL: Extremities without clubbing, cyanosis, or edema. NEUROLOGICAL: Awake and alert. Oriented to time, place, person. Normal speech. Has intact sensation lower extremities, able to wiggle his toes, plantar and dorsiflex his feet, float his heels, barely bends his knees in bed. Patellar reflexes hyper reflexive. Bilateral upper extremity strength 3-4 out of 5. Results - Labs CBC & Chem 7: 09/12/18 06:05 09/12/18 06:05 Laboratory Results - last 24 hr 09/12/18 08:55 CSF Myelin Basic Protein Less than 2.0 L Assessment and Plan - Assessment (1) Transverse myelitis Code(s): G37.3 - Acute transverse myelitis in demyelinating disease of central nervous system Status: Acute - Plan 33-year-old male admitted secondary to acute onset of bilateral lower extremity paraplegia. Transverse myelitis -No evidence of CVA or MS on imaging of brain and spine -No evidence of severe stenosis -Combining evidence on lumbar puncture with physical exam, neurology feels this is likely transverse myelitis -Neurology following, recommends checking NMO antibody -Continue IV steroids (today last dose) -PT/OT following -some improvement, but still weak. C/O weakness to arms and legs. Weakness propelling himself from wheelchair to bed. -Unable to stand up completely. Bilateral upper extremity with limited range of motion. -will need clearance from neurology -Patient requesting paperwork from disability to be filled out. As per [employer], paperwork has been filled out and returned to patient. He needs to have the rest filled out by [facility]. PTSD -Pt with chronic benzodiazepine use -Resumed at lower doses to prevent withdrawal -Continue bedtime trazodone Constipation -add Miralax daily DVT prophylaxis Lovenox CODE STATUS: Full code Discussed with patient, nursing, CM, Dr. Aponte Discharge Planning: Will possibly need outpatient physical therapy versus home health care physical therapy when cleared by neurology.
[2018-09-17] MEDS: LORazepam 0.5 MG Tablet PO PRN (16:47)
--- NOTE | 2018-09-17 17:39 | XR ---
EXAM DATE: 09/17/2018 5:35 PM EST AGE/SEX: 33 years / Male INDICATIONS: Chest pain. CLINICAL DATA: This is the patient's initial encounter. Patient reports that signs and symptoms have been present for 1 day and indicates a pain score of 10/10. MEDICAL/SURGICAL HISTORY: . Seizures. Spinal stenosis, Degenerative disc disease, Facet degener ation of lumbar region, PTSD. . Appendectomy. Shoulder surgery. COMPARISON: No prior exams available for comparison. FINDINGS: A single AP view of the chest demonstrates the lungs to be symmetrically aerated without evidence of mass, infiltrate or effusion. The cardiomediastinal contours are unremarkable. Osseous structures a re intact. CONCLUSION: No acute cardiopulmonary process. Electronically signed by: Albin Rahman MD 09/17/2018 5:38 PM EST
--- NOTE | 2018-09-17 20:09 | P.PNNEU ---
Subjective Subjective Comments: Pt feels weaker in both legs. C/O urinary urgency Active Medications: Active Medications Acetaminophen (Tylenol) 650 mg PO Q4H PRN PRN Reason: temp> 100.4/pain Last Admin: 09/13/18 01:07 Dose: 650 mg Bisacodyl (Dulcolax Supp) 10 mg RECTAL DAILY PRN PRN Reason: SEVERE CONSITIPATION Buspirone HCl (Buspar) 10 mg PO BID [facility] Last Admin: 09/17/18 08:23 Dose: 10 mg Butalbital/Aspirin/Caffeine (Fiorinal 50-325-40 Mg) 1 cap PO Q4H PRN PRN Reason: HEADACHE Last Admin: 09/15/18 23:39 Dose: 1 cap Famotidine (Pepcid) 20 mg PO BID@0600,1800 [facility] Last Admin: 09/17/18 17:52 Dose: 20 mg Heparin Sodium (Porcine) (Heparin Inj) 5,000 units SQ Q12HR [facility] Last Admin: 09/17/18 08:23 Dose: 5,000 units Lorazepam (Ativan) 0.5 mg PO Q6H PRN PRN Reason: ANXIETY Last Admin: 09/17/18 16:47 Dose: 0.5 mg Ondansetron HCl (Zofran Inj) 4 mg IV.PUSH Q6H PRN PRN Reason: NAUSEA OR VOMITING Polyethylene Glycol (Miralax) 17 gm PO DAILY [facility] Last Admin: 09/17/18 08:26 Dose: Not Given Sennosides (Senokot) 17.2 mg PO Q12H PRN PRN Reason: Moderate Constipation Sertraline HCl (Zoloft) 150 mg PO DAILY [facility] Last Admin: 09/17/18 08:23 Dose: 150 mg Trazodone HCl (Desyrel) 150 mg PO HS [facility] Last Admin: 09/16/18 21:18 Dose: 150 mg Allergies/Adverse Reactions: Allergies Allergy/AdvReac Type Severity Reaction Status Date / Time No Known Allergies Allergy Verified 09/10/18 17:55 Physical Exam Vital signs: Vital Signs 09/17/18 00:00 09/17/18 02:05 09/17/18 04:00 Temperature 97.6 F 98 F Pulse Rate 59 L 54 L Respiratory Rate 18 16 18 Blood Pressure 121/64 122/67 Pulse Oximetry 96 94 L 09/17/18 08:00 09/17/18 11:58 09/17/18 15:10 Temperature 97.9 F 97.6 F 98.1 F Pulse Rate 55 L 60 76 Respiratory Rate 20 20 20 Blood Pressure 120/69 126/68 129/68 Pulse Oximetry 95 95 95 Intake & Output 09/17/18 09/17/18 09/18/18 06:59 18:59 06:59 Intake Total 312 / 312 104 / 104 104 / 104 Balance 312 / 312 104 / 104 104 / 104 Weight 85.1 kg Intake: IV 312 / 312 104 / 104 104 / 104 SoluMEDROL Inj 250 MG In NS Inj 312 / 312 104 / 104 104 / 104 100 ML @ 208 mls/hr IV.SIG Q6HR [facility] Rx#:[id number] Other: # Voids 2 Date of Last Bowel Movement 09/15/18 - Routine Neurological Exam alert, speech normal CN intact MOTOR 5./5 BUE 1/5 BLE proximally and distally Sensory diminished BLE DTR 3+ patellar bilaterally, 2+ ankle bilaterlly. no Babinski Objective Laboratory Results - last 24 hr 09/12/18 08:55 CSF Myelin Basic Protein Less than 2.0 L Review/Management - Review/Management Plan: repeat MRI cervical and thoracic spines check anti-NMO antibody (aquaporin-4 antibody) If positive, consider plasma pheresis
[2018-09-17] MEDS: traZODone 50 MG Tablet PO SCH (21:18)
[2018-09-18] MEDS: Famotidine 20 MG Tablet PO SCH ×2 (06:27→17:41)
[2018-09-18] MEDS: Sertraline 50 MG Tablet PO SCH (08:39)
[2018-09-18] MEDS: Heparin - SQ 10,000 UNITS/ML Vial SQ SCH ×2 (08:40→20:46)
[2018-09-18] MEDS: Polyethylene Glycol 3350 17 GM Packet PO SCH (08:40)
[2018-09-18] MEDS ORDERED: Gadobutrol PF 10 MMOL/10 ML Vial (for RAD) IV.SIG ONE (10:15)
--- NOTE | 2018-09-18 10:26 | MR ---
EXAM DATE: 09/18/2018 10:17 AM EST AGE/SEX: 33 years / Male INDICATIONS: Incontinence. Leg weakness. CLINICAL DATA: This is the patient's subsequent encounter. Patient reports that signs and symptoms h ave been present for 2 weeks and indicates a pain score of 3/10. MEDICAL/SURGICAL HISTORY: . kidney stones . left shoulder surgery COMPARISON: [facility] – [place], [place] CERVICAL SPINE W/O CONTRAST, 09/10/2018. . TECHNIQUE: Multiplanar, multisequence MRI examination of the cervical spine was performed without an d with 8.5 ml Gadavist (gadobutrol) contrast as a single exam dose. FINDINGS: Vertebrae: No fracture is identified. Vertebral body height is maintained. Alignment: No anterolisthesis or retrolisthesis. The craniocervical junction and C1-C2 level demonstrate no significant abnormality. C2-C3: No disc herniation, canal stenosis, or neural foraminal stenosis is identified. C3-C4: No disc herniation, canal stenosis, or neural foraminal stenosis is identified. C4-C5: No disc herniation, canal stenosis, or neural foraminal stenosis is identified. C5-C6: There is disc desiccation with a mild diffuse disc bulge. No spinal canal stenosis or neural foraminal stenosis is present. C6-C7: No disc herniation, canal stenosis, or neural foraminal stenosis is identified. C7-T1: No disc herniation, canal stenosis, or neural foraminal stenosis is identified. Other: The visualized surrounding structures demonstrate no acute abnormality. Post contrast: No abnormal areas of contrast enhancement are identified. CONCLUSION: 1. Mild degenerative disc disease at C5-C6 with mild diffuse disc bulge. No spinal canal stenosis or neural foraminal narrowing is identified. 2. Remainder of the examination is within normal limits without an abnormality to explain the clinic al symptoms. Electronically signed by: Albin Davidson MD 09/18/2018 10:25 AM EST
--- NOTE | 2018-09-18 10:29 | MR ---
EXAM DATE: 09/18/2018 8:48 AM EST AGE/SEX: 33 years / Male INDICATIONS: Incontinence. Leg weakness. CLINICAL DATA: This is the patient's subsequent encounter. Patient reports that signs and symptoms h ave been present for 2 weeks and indicates a pain score of 3/10. MEDICAL/SURGICAL HISTORY: . kidney stone . left shoulder surgery [place] [facility] [place]AC[place] W/[place]AST, 09/10/2018. . TECHNIQUE: Multiplanar, multisequence MRI of the thoracic spine was performed without and with 8.5 m l Gadavist (gadobutrol) contrast as a single exam dose. FINDINGS: Vertebrae: Normal vertebral body height. Bone marrow signal is within normal limits. Alignment: No anterolisthesis or retrolisthesis. Cord: Normal signal. T1-T2: No disc herniation, canal stenosis, or neural foraminal stenosis. T2-T3: No disc herniation, canal stenosis, or neural foraminal stenosis. T3-T4: No disc herniation, canal stenosis, or neural foraminal stenosis. T4-T5: No disc herniation, canal stenosis, or neural foraminal stenosis. T5-T6: No disc herniation, canal stenosis, or neural foraminal stenosis. T6-T7: No disc herniation, canal stenosis, or neural foraminal stenosis. T7-T8: No disc herniation, canal stenosis, or neural foraminal stenosis. T8-T9: No disc herniation, canal stenosis, or neural foraminal stenosis. T9-T10: No disc herniation, canal stenosis, or neural foraminal stenosis. T10-T11: No disc herniation, canal stenosis, or neural foraminal stenosis. T11-T12: No disc herniation, canal stenosis, or neural foraminal stenosis. T12-L1: No disc herniation, canal stenosis, or neural foraminal stenosis. Other: The visualized surrounding structures demonstrate no acute abnormality. Post contrast: No abnormal areas of enhancement are identified. CONCLUSION: Examination of the thoracic spine is within normal limits. Electronically signed by: Albin Davidson MD 09/18/2018 10:28 AM EST
[2018-09-18] MEDS: LORazepam 0.5 MG Tablet PO PRN ×2 (14:46→20:47)
--- NOTE | 2018-09-18 16:20 | P.PNIM ---
Subjective Interval history: Follow up for transverse myelitis. Patient seen and examined today. Reports continued had to have bilateral lower extremity weakness. States MRI has been done. States he saw Dr. Interiano yesterday and had some of the paperwork filled out. Patient had another paperwork from the [employer] for central nervous system and neuromuscular diseases. Continues to have bowel and bladder incontinence. Otherwise, denies shortness of breath or dyspnea, denies chest pain, palpitation. Reports episode of chest pain yesterday with palpitation and tachycardia and high blood pressure states possibly related to his anxiety as after he took antianxiety medication which she has Ativan and diazepam also at home aside from buspirone patient states he was doing okay. Physical Exam Vital signs: Vital Signs 09/17/18 20:00 09/18/18 00:00 09/18/18 00:38 Temperature 97.8 F 98.0 F Pulse Rate 56 L 55 L Respiratory Rate 20 20 18 Blood Pressure 151/82 H 141/76 H Pulse Oximetry 94 L 93 L 09/18/18 04:00 09/18/18 08:00 09/18/18 12:00 Temperature 97.8 F 97.8 F 97.3 F L Pulse Rate 54 L 48 L 68 Respiratory Rate 20 20 18 Blood Pressure 139/77 150/87 H 113/60 Pulse Oximetry 95 94 L Intake & Output 09/17/18 09/18/18 09/18/18 18:59 06:59 18:59 Intake Total 104 / 104 104 / 104 Output Total 4 / 4 Balance 104 / 104 100 / 100 Weight 87.3 kg Intake: IV 104 / 104 104 / 104 SoluMEDROL Inj 250 MG In NS Inj 104 / 104 104 / 104 100 ML @ 208 mls/hr IV.SIG Q6HR [facility] Rx#:[id number] Output: Urine 4 / 4 Other: # Voids 4 Date of Last Bowel Movement 09/17/18 # Bowel Movements 2 Narrative: GENERAL: This is a well-nourished, well-developed male patient, in no apparent distress. SKIN: Warm and dry HEENT: Normocephalic. Pupils equal round and reactive. Nose without bleeding. Airway patent. NECK: Trachea midline. CARDIOVASCULAR: Regular rate and rhythm without murmurs, gallops, or rubs. RESPIRATORY: Clear to auscultation. Breath sounds equal bilaterally. No wheezes , rales, or rhonchi. GASTROINTESTINAL: Abdomen soft, non-tender, nondistended. Bowel Sounds normoactive x4. MUSCULOSKELETAL: Extremities without clubbing, cyanosis, or edema. NEUROLOGICAL: Awake and alert. Oriented to time, place, person. Normal speech. Has intact sensation lower extremities, able to wiggle his toes, plantar and dorsiflex his feet, float his heels, barely bends his knees in bed. Patellar reflexes hyper reflexive. Bilateral upper extremity strength 4 out of 5. Results - Labs CBC & Chem 7: 09/12/18 06:05 09/12/18 06:05 - Imaging Impressions Chest X-Ray 09/17/18 00:00 CONCLUSION: No acute cardiopulmonary process. Cervical Spine MRI 09/18/18 00:00 CONCLUSION: 1. Mild degenerative disc disease at C5-C6 with mild diffuse disc bulge. No spinal canal stenosis or neural foraminal narrowing is identified. 2. Remainder of the examination is within normal limits without an abnormality to explain the clinical symptoms. Thoracic Spine MRI 09/18/18 07:09 CONCLUSION: Examination of the thoracic spine is within normal limits. Assessment and Plan - Assessment (1) Transverse myelitis Code(s): G37.3 - Acute transverse myelitis in demyelinating disease of central nervous system Status: Acute - Plan 33-year-old male admitted secondary to acute onset of bilateral lower extremity paraplegia. Transverse myelitis -No evidence of CVA or MS on imaging of brain and spine -No evidence of severe stenosis -Combining evidence on lumbar puncture with physical exam, neurology feels this is likely transverse myelitis -Neurology following, recommends checking NMO antibody - Pending, if positive will do plasmapheresis -Continue IV steroids (last dose 09/17) -PT/OT following -some improvement, but still weak. C/O weakness to arms and legs. Weakness propelling himself from wheelchair to bed. -Unable to stand up completely. Bilateral upper extremity with limited range of motion. -will need clearance from neurology -Patient requesting paperwork from disability to be filled out. As per [employer], paperwork has been filled out and returned to patient. He needs to have the rest filled out by the [facility] P[facility] neurologist. Another paperwork was signed for [employer] for central nervous system and neuromuscular diseases. Copy in the chart. -Repeat MRI of the thoracic and cervical spine as per Dr. Interiano, Examination of the thoracic spine is within normal limits. Cervical Spine with 1. Mild degenerative disc disease at C5-C6 with mild diffuse disc bulge. No spinal canal stenosis or neural foraminal narrowing is identified. 2. Remainder of the examination is within normal limits without an abnormality to explain the clinical symptoms. PTSD -Pt with chronic benzodiazepine use -Resumed at lower doses to prevent withdrawal -Continue bedtime trazodone Constipation -add Miralax daily DVT prophylaxis Lovenox CODE STATUS: Full code Discussed with patient, nursing, CM, Dr. Aponte Discharge Planning: Will possibly need outpatient physical therapy versus home health care physical therapy when cleared by neurology.
[2018-09-18] MEDS: traZODone 50 MG Tablet PO SCH (20:46)
[2018-09-18] MEDS: Acetaminophen 325 MG Tablet PO PRN (20:49)
[2018-09-19] MEDS: Famotidine 20 MG Tablet PO SCH ×2 (06:19→17:57)
[2018-09-19] MEDS: LORazepam 0.5 MG Tablet PO PRN ×2 (06:19→12:40)
[2018-09-19] MEDS: Polyethylene Glycol 3350 17 GM Packet PO SCH (08:00)
[2018-09-19] MEDS: Heparin - SQ 10,000 UNITS/ML Vial SQ SCH (08:00)
[2018-09-19] MEDS: Sertraline 50 MG Tablet PO SCH (08:00)
[2018-09-19] MEDS ORDERED: Baclofen 10 MG Tablet PO SCH ×2 (10:00→18:00)
[2018-09-19 12:01] VITALS: RESP 16; O2SAT 95
[2018-09-19] MEDS ORDERED: Ketorolac Inj 30 MG/ML (IVP) Vial IV.PUSH ONE (12:33)
--- NOTE | 2018-09-19 12:57 | P.PNIM ---
Subjective Interval history: Follow up for transverse myelitis. Patient seen and examined today. For severe back pain thoracic area right side, radiating to his chest, aggravated by movement. States that he did not take his antianxiety medication. States that he wanted a stronger pain medication. On exam patient is complaining of tenderness to palpate thoracic region right side of his back area. Discussed with patient extensively his MRI did not show any indication for starting him on narcotics. Agreeable for ibuprofen, baclofen, giving him his antianxiety medication. Reports he continues to have weakness. Denies SOB/ dyspnea. Denies palpitations, headaches, dizziness. Denies fevers, chills, n/v/d. Denies hematuria, dysuria. Physical Exam Vital signs: Vital Signs 09/18/18 16:20 09/18/18 20:00 09/19/18 00:00 Temperature 97.9 F 97.7 F 97.9 F Pulse Rate 77 70 68 Respiratory Rate 17 18 18 Blood Pressure 114/73 109/53 L 91/55 L Pulse Oximetry 95 95 95 09/19/18 04:00 09/19/18 08:00 09/19/18 11:58 Temperature 98.0 F 97.9 F 98.3 F Pulse Rate 61 81 82 Respiratory Rate 18 18 16 Blood Pressure 108/62 106/56 L 110/50 L Pulse Oximetry 95 96 95 Intake & Output 09/18/18 09/19/18 09/19/18 18:59 06:59 18:59 Intake Total 960 / 960 Balance 960 / 960 Weight 61.6 kg Intake: Oral 960 / 960 Other: # Voids 3 Date of Last Bowel Movement 09/17/18 Narrative: GENERAL: This is a well-nourished, well-developed male patient, in no apparent distress. SKIN: Warm and dry HEENT: Normocephalic. Pupils equal round and reactive. Nose without bleeding. Airway patent. NECK: Trachea midline. CARDIOVASCULAR: Regular rate and rhythm without murmurs, gallops, or rubs. RESPIRATORY: Clear to auscultation. Breath sounds equal bilaterally. No wheezes , rales, or rhonchi. GASTROINTESTINAL: Abdomen soft, non-tender, nondistended. Bowel Sounds normoactive x4. MUSCULOSKELETAL: Extremities without clubbing, cyanosis, or edema. Right side mid back area/thoracic area tenderness to palpate. NEUROLOGICAL: Awake and alert. Oriented to time, place, person. Normal speech. Has intact sensation lower extremities, able to wiggle his toes, plantar and dorsiflex his feet, float his heels, barely bends his knees in bed. Patellar reflexes hyper reflexive. Bilateral upper extremity strength 4 out of 5. Results - Labs CBC & Chem 7: 09/12/18 06:05 09/12/18 06:05 Assessment and Plan - Assessment (1) Transverse myelitis Code(s): G37.3 - Acute transverse myelitis in demyelinating disease of central nervous system Status: Acute - Plan 33-year-old male admitted secondary to acute onset of bilateral lower extremity paraplegia. Thoracic pain -Toradol x1 dose now, baclofen 3 times daily -Notable increase in anxiety, continue with antianxiety medication -Monitor -Will not start on any narcotics for now. This has been discussed extensively with Dr. Aponte. Transverse myelitis -No evidence of CVA or MS on imaging of brain and spine -No evidence of severe stenosis -Combining evidence on lumbar puncture with physical exam, neurology feels this is likely transverse myelitis -Neurology following, recommends checking NMO antibody - Pending, if positive will do plasmapheresis -Continue IV steroids (last dose 09/17) -PT/OT following -some improvement, but still weak. C/O weakness to arms and legs. Weakness propelling himself from wheelchair to bed. -Unable to stand up completely. Bilateral upper extremity with limited range of motion. -will need clearance from neurology -Patient requesting paperwork from disability to be filled out. As per LENIN Shah, paperwork has been filled out and returned to patient. He needs to have the rest filled out by the [facility] PCP/[facility] neurologist. Another paperwork was signed for [employer] for central nervous system and neuromuscular diseases. Copy in the chart. -Repeat MRI of the thoracic and cervical spine as per Dr. Interiano, Examination of the thoracic spine is within normal limits. Cervical Spine with 1. Mild degenerative disc disease at C5-C6 with mild diffuse disc bulge. No spinal canal stenosis or neural foraminal narrowing is identified. 2. Remainder of the examination is within normal limits without an abnormality to explain the clinical symptoms. PTSD -Pt with chronic benzodiazepine use -Resumed at lower doses to prevent withdrawal -Continue bedtime trazodone Constipation -add Miralax daily DVT prophylaxis Lovenox CODE STATUS: Full code Discussed with patient, nursing, CM, Dr. Aponte Discharge Planning: Will possibly need outpatient physical therapy versus home health care physical therapy when cleared by neurology.
[2018-09-19 16:39] VITALS: BP 102/55; PULSE 90; TEMP 98.1
--- NOTE | 2018-09-19 17:23 | P.DS ---
Date of admission: 09/11/18 11:29 Primary care physician: [facility] Attending physician on discharge: Gucci Aponte Anticipated date of discharge: 09/19/18 Brief History from admission: 33-year-old male with a past medical history significant for PTSD, degenerative disc disease, previous diagnosis of C5 spinal stenosis and history of kidney stones presents to the emergency department for evaluation of bilateral lower extremity weakness. The patient reports he has had intermittent episodes of his "legs not working" since 2013. He states that for the past 2 weeks his symptoms have returned. He has had intermittent bladder incontinence times 1 month. The patient was having an MRI done at the [facility] earlier yesterday when he noted increasing bilateral lower extremity weak. He reports he was able to make it to his truck in the parking lot however once he sat down in the truck he was then unable to move his legs. He reports mild numbness/tingling but states he is still able to feel sensation throughout his lower extremities. Reflexes are normal. He denies any recent fever or chills. No chest pain or shortness of breath. No abdominal pain. No nausea/vomiting/diarrhea. Patient update on day of discharge: Follow up for transverse myelitis. Patient seen and examined today. complaints of severe back pain thoracic area right side, radiating to his chest , aggravated by movement. States that he did not take his antianxiety medication. States that he wanted a stronger pain medication. On exam patient is complaining of tenderness to palpate thoracic region right side of his back area. Discussed with patient extensively his MRI did not show any indication for starting him on narcotics. Agreeable for ibuprofen, baclofen, giving him his antianxiety medication. Reports he continues to have weakness. Denies SOB/ dyspnea. Denies palpitations, headaches, dizziness. Denies fevers, chills, n/v/ d. Denies hematuria, dysuria. Relief with Toradol use was reported. DS: Diagnosis - Discharge Diagnosis (1) Transverse myelitis Status: Acute DS: Medications - Discharge Medications Prescriptions: RX: baclofen 5 mg PO Q8H #15 tab DS: Summary Hospital Course: Patient is a 33-year-old male past medical history significant for PTSD, degenerative disc disease, previous diagnosis of C5 spinal stenosis and history of kidney stones presents to the emergency department for evaluation of bilateral lower extremity weakness. Patient was worked up and found no evidence of CVA or MS and imaging of the brain and spine. No evidence of severe stenosis. Combination of evidence and lumbar puncture with physical exam , neurology, Dr. Interiano feels this is likely transverse myelitis. Dr. Interiano, recommended checking an MO antibody, pending we will follow-up in the outpatient. Patient was given IV steroids with last dose 09/17. Physical therapy and occupational therapy have worked with the patient. He continues to have bilateral lower extremity weakness. A repeat MRI of the thoracic and cervical spine was done showed examination of the thoracic spine is within normal limits. Cervical Spine with 1. Mild degenerative disc disease at C5-C6 with mild diffuse disc bulge. No spinal canal stenosis or neural foraminal narrowing is identified. 2. Remainder of the examination is within normal limits without an abnormality to explain the clinical symptoms. She did not continues to have bouts of anxiety during hospitalization, history of PTSD with chronic benzodiazepine use he was given his Ativan and also trazodone at bedtime. Earlier today patient was complaining of pain in his back thoracic area Toradol was given with relief. Will provide patient with baclofen 5 mg 3 times daily. [place] Pres[place] Drug Monitoring Database has been queried and verified, patient is on Ativan last given dose was 03/15/18., Ambien with last given dose 07/31/18. We will not provide the patient with any narcotics as there is no clinical indication based on imaging studies. He will need to continue with physical therapy in the outpatient setting. He will be discharged with home health care. He will need to follow-up with Dr. Interiano in the outpatient setting. We will provide baclofen 5 mg 3 times daily, 15 count. Patient has met maximal benefits of hospitalization. Clinically stable for discharge. - Time Spent with Patient Total time spent providing and/or coordinating discharge services: Less than 30 minutes - Quality: VTE Deep Vein Thrombosis/Pulmonary Embolism Present on Admission: No Exam Vital signs: Vital Signs 09/18/18 20:00 09/19/18 00:00 09/19/18 04:00 Temperature 97.7 F 97.9 F 98.0 F Pulse Rate 70 68 61 Respiratory Rate 18 18 18 Blood Pressure 109/53 L 91/55 L 108/62 Pulse Oximetry 95 95 95 09/19/18 08:00 09/19/18 11:58 09/19/18 16:00 Temperature 97.9 F 98.3 F 98.1 F Pulse Rate 81 82 90 Respiratory Rate 18 16 16 Blood Pressure 106/56 L 110/50 L 102/55 L Pulse Oximetry 96 95 95 Intake & Output 09/18/18 09/19/18 09/19/18 18:59 06:59 18:59 Intake Total 960 / 960 Balance 960 / 960 Weight 61.6 kg Intake: Oral 960 / 960 Other: # Voids 3 Date of Last Bowel Movement 09/17/18 Narrative: GENERAL: This is a well-nourished, well-developed male patient, in no apparent distress. SKIN: Warm and dry HEENT: Normocephalic. Pupils equal round and reactive. Nose without bleeding. Airway patent. NECK: Trachea midline. CARDIOVASCULAR: Regular rate and rhythm without murmurs, gallops, or rubs. RESPIRATORY: Clear to auscultation. Breath sounds equal bilaterally. No wheezes , rales, or rhonchi. GASTROINTESTINAL: Abdomen soft, non-tender, nondistended. Bowel Sounds normoactive x4. MUSCULOSKELETAL: Extremities without clubbing, cyanosis, or edema. Right side mid back area/thoracic area tenderness to palpate. NEUROLOGICAL: Awake and alert. Oriented to time, place, person. Normal speech. Has intact sensation lower extremities, able to wiggle his toes, plantar and dorsiflex his feet, float his heels, barely bends his knees in bed. Patellar reflexes hyper reflexive. Bilateral upper extremity strength 4 out of 5. Results Procedures completed during hospitalization: Lumbar Puncture 09/12/18 - Impressions ITS Impressions Lumbar Spine MRI 09/10/18 19:15 CONCLUSION: 1. Mild ligamentum flavum hypertrophy at L4-S1 and facet arthrosis at L5-S1. 2. No significant disc disease, central canal stenosis or neural foraminal compromise. 3. Normal distal cord signal. Head MRI 09/11/18 00:00 CONCLUSION: 1. Negative MR Brain non contrast. Lumbar Puncture Fluoroscopy 09/12/18 00:00 CONCLUSION: 1. Uncomplicated fluoroscopically guided lumbar puncture. Chest X-Ray 09/17/18 00:00 CONCLUSION: No acute cardiopulmonary process. Cervical Spine MRI 09/18/18 00:00 CONCLUSION: 1. Mild degenerative disc disease at C5-C6 with mild diffuse disc bulge. No spinal canal stenosis or neural foraminal narrowing is identified. 2. Remainder of the examination is within normal limits without an abnormality to explain the clinical symptoms. Thoracic Spine MRI 09/18/18 07:09 CONCLUSION: Examination of the thoracic spine is within normal limits. Discharge Plan - Discharge Disposition Patient Disposition: /Home Health Service - Discharge Condition Condition: Stable - Discharge Order Discharge Orders: Discharge Order (Routine); Ordered 09/19/18 Ordered By: Krystle Romero - Discharge Details Anticipated Discharge Date: 09/17/18 - Physicians Team Primary Care Provider: [facility] Attending Provider: Gucci Aponte Other Providers: Rj Interiano MD, PhD
== END 2018-09-19 20:58 | disposition home health service (06) ==
LOC: NEDA 16:55 → NEPD 16:55 → NEDA 09-11 03:51 → NEPGCP 09-11 04:01 → N05 09-14 15:00
PROVIDERS: ADMIT Family Medicine; ATTEND Family Medicine
DX: F41.9 Anxiety disorder, unspecified; H57.04 Mydriasis; K59.00 Constipation, unspecified; M50.322 Other cervical disc degeneration at C5-C6 level; G82.20 Paraplegia, unspecified; Z87.442 Personal history of urinary calculi; G37.3 Acute transverse myelitis in demyelinating disease of central nervous system; F43.10 Post-traumatic stress disorder, unspecified; Z79.899 Other long term (current) drug therapy; R32 Unspecified urinary incontinence